=== PATIENT | male | born 1990 | race Caucasian/White ===

== ENCOUNTER 2017-02-25 05:48 | Day surgery (SDC) | payer MEDICAID, OTHER ==
[2017-02-20 15:05] VITALS: BMI 22.0
[2017-02-25] MEDS: SODIUM CHLORIDE 0.9% 1,000 ML IV SCH (06:34)
[2017-02-25] MEDS ORDERED: PROTAMINE SULFATE 10 MG/ML 5 ML VIAL IV ONE (07:46)
[2017-02-25] MEDS ORDERED: MIDAZOLAM 2 MG/2 ML VIAL ONE (07:46)
[2017-02-25] MEDS ORDERED: ISOPROTERENOL 250 MCG/1.25 ML SYR IV ONE (07:46)
[2017-02-25] MEDS ORDERED: HEPARIN SODIUM,PORCINE 10,000 UNIT/ML 1 ML VIAL ONE (07:46)
[2017-02-25] MEDS ORDERED: fentaNYL (PF) 50 MCG/ML 2 ML AMP ONE (07:46)
[2017-02-25] MEDS ORDERED: PROPOFOL 10 MG/ML 20 ML VIAL IV ONE (07:46)
[2017-02-25] MEDS ORDERED: HEPARIN SODIUM (1,000 UNIT/ML) 1,000 UNIT in SODIUM CHLORIDE 0.9% 1,000 ML IRRIGATION ONE (08:22)
[2017-02-25] MEDS ORDERED: LIDOCAINE 2% INJ 20 MG/ML SQ ONE (08:22)
[2017-02-25] MEDS ORDERED: ACETAMINOPHEN IV (For NPO) 1,000 MG in EMPTY BAG 1 BAG IVPB ONE (11:45)
[2017-02-25] MEDS ORDERED: LACTATED RINGERS 1,000 ML IV ONE (12:18)
[2017-02-25 13:00] VITALS: RESP 18
[2017-02-25] MEDS: LACTATED RINGERS 1,000 ML IV SCH (16:58)
[2017-02-25] MEDS: ASPIRIN 325 MG TAB PO SCH (16:58)
[2017-02-25] MEDS: HEPARIN SODIUM,PORCINE/D5W PMX 25,000 UNIT in DEXTROSE/WATER 1 500ML.BAG IV SCH (16:58)
[2017-02-25] MEDS ORDERED: HYDROcodone/APAP 5-325MG 1 EACH TAB PO PRN (17:05)
--- NOTE | 2017-02-25 17:10 | CE ---
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 The patient is brought to the EP lab. He was referred by Dr. Beebe for management of an abnormal ECG with an with evidence of antegrade excessive pathway conduction/. DESCRIPTION OF PROCEDURE: Patient brought to the EP lab in a fasting state. Written informed consent was obtained prior to the procedure. The right and left groins were prepped and draped as per protocol and venous sheaths were placed in the right and left femoral veins, 2 each. Via these diagnostic catheters were positioned the right heart (high right atrial catheter, HIS bundle catheter, RV catheter and coronary sinus catheter). 1. Sinus cycle length was 990 milliseconds. AH interval 109 milliseconds, QRS showed evidence of wound delta waves with upright morphology in leads 1, aVL, negative in 2, 3 aVF upright in all precordial leads. 2. AH interval was 75 milliseconds HV interval was foreshortened at 16 milliseconds. 3. Sinus node recovery times in the sedated state was at 600 and 500 milliseconds were 1308 and 1294 milliseconds. Corresponding corrected sinus recovery times were within normal limits. VA Wenckebach block was 70 milliseconds. During atrial pacing accessory pathway conduction was noted intermittently. 4. Isuprel was then started and AV Wenckebach block was at 280 millisecond from the coronary sinus in the high right atrium and from the high right atrium. There is excessive pathway block occurred at a shorter cycle length than this. VA Wenckebach block 240 milliseconds, VA block in the accessary pathway 230 milliseconds. 5. Ventricular extra stimulation was performed. Pacing from the high right atrium and the coronary sinus was performed. SVT was induced on Isuprel at 450/200 milliseconds. This was orthodromic reentry with the retrograde conduction in the posterior left accessory pathway. However this pathway had showed evidence of bidirectional conduction. 6. With the slightest ventricular pacing maneuvers the tachycardia would terminate very easily. Therefore the left and right transseptal catheterization was performed with intracardiac echo guidance. The right atrial pressure was 12 x 3 mmHg, left atrial pressure 20 x 0 mmHg Mapping ablation catheter was placed there and the mitral anulus was mapped. Mitral annular points were tagged. The mapping was performed both during orthodromic reentry. However it was somewhat more difficult to induce orthodromic reentry after this as well as the fact that it would terminate very easily and during mapping along the posterior mitral anulus. The antegrade path was also mapped. Finally the earliest site of antegrade activation was mapped and RF application was applied here and bullous lesions applied. With the first lesion itself being the excessive pathway conduction was eliminated, bolus lesions were applied thereafter. Following that, a detailed study was performed with high-dose Isuprel as well as during the washout without any evidence for accessary pathway conduction antegradely or retrogradely. AV node Wenckebach block on Isuprel following that was AV node Wenckebach block was 220 milliseconds, VA Wenckebach block 210 milliseconds, retrograde conduction was midline and decremental. There was no evidence for excessive pathway conduction. Thereafter no SVT was induced. All catheters were then removed. The heparin had been started during the procedure, heparin used during the procedure and this was reversed. The patient was started on aspirin 325 mg p.o. daily for 1 month. RESULT: Diagnostic EP study revealing orthodromic re-entry utilizing the retrograde left posterior accessary pathway status post successful ablation. The tachycardia was rendered noninducible and the excessive pathway was eliminated completely. The patient tolerated the procedure well without any acute complications. PROCEDURE PERFORMED: 1. Comprehensive diagnostic EP study. 2. CS pacing and recording. 3. Programmed stimulation following Isuprel. 4. 3D mapping. 5. SVT ablation. 6. Intracardiac echocardiography. 7. Transeptal catheterization. 8. 3D mapping and radiofrequency ablation for SVT. MMODL / IJN: [id number] /
[2017-02-25] MEDS ORDERED: ACETAMINOPHEN TAB 325 MG TAB PO PRN (18:00)
[2017-02-26 07:30] VITALS: BP 127/69; PULSE 56; TEMP 98.1
--- NOTE | 2017-02-26 08:17 | P.DS ---
Providers Attending physician: Waqar Andino Primary care physician: Enriqueta Alvarez [facility] Course: Patient is doing well. He underwent ablation of the left posterior accessory pathway for the management of orthodromic reentry. His groins of healed well no pain no discomfort no swelling. No chest pain no dizziness no lightheadedness on examination his vitals are stable. Heart sounds are normal breath sounds are clear extremities are warm Impression Orthodromic reentry status post ablation of the left posterior accessory pathway , successful Twelve-lead ECG today shows sinus rhythm with a narrow QRS and absence of any delta waves Occasional PACs noted on telemetry Plan Discharge home on aspirin 325 mg by mouth daily for one month. Thereafter the patient should stop aspirin Follow-up with private care physician Dr. Alvarez and with Dr. Montoya Patient Condition at Discharge: Stable Plan - Discharge Summary Discharge Rx Participant: Yes New Discharge Prescriptions: New RX: Aspirin EC [Ecotrin] 325 mg PO DAILY #30 tablet. No Action HYDROcodone/APAP 5-325MG [Yantis 5-325] 1 tab PO Q6HR PRN PRN Reason: Pain Ibuprofen [Motrin] 800 mg PO DAILY PRN PRN Reason: Pain Discharge Medication List HYDROcodone/APAP 5-325MG [Yantis 5-325] 1 tab PO Q6HR PRN 02/20/17 [History] Ibuprofen [Motrin] 800 mg PO DAILY PRN 02/20/17 [History] RX: Aspirin EC [Ecotrin] 325 mg PO DAILY #30 tablet. 02/25/17 [Rx] Follow up Appointment(s)/Referral(s): Torito Beebe MD [STAFF PHYSICIAN] - 1 Week Activity/Diet/Wound Care/Special Instructions: Post EP study - Ablation instructions 1. Keep access sites dry for 2 days. 2. No heavy lifting or straining for 2 days. 3. Avoid bending the hips repeatedly for 2 days. 4. You may go up and down stairs slowly Call if the following is noted 1. Bleeding, increasing swelling or pain at the access sites. 2. Increasing chest discomfort, especially upon taking a deep breath. 3. Increasing shortness of breath, at rest or with exertion. 4. Undue cough / phlegm 5. Difficulty or pain while swallowing. 6. Pain or change in color in the extremities. 7. Fever, chills, rigors. 8. Increasing headache or neurologic symptoms. 9. Dizziness, fainting, palpitations Follow-up with Dr. Montoya in 1-2 weeks 325 mg by mouth aspirin daily for one month then stop Discharge Disposition: HOME SELF-CARE
[2017-02-26] MEDS: ASPIRIN 325 MG TAB PO SCH (08:34)
[2017-02-26] MEDS: SODIUM CHLORIDE 0.9% 1,000 ML IV SCH (10:29)
[2017-02-26] MEDS: HEPARIN SODIUM,PORCINE/D5W PMX 25,000 UNIT in DEXTROSE/WATER 1 500ML.BAG IV SCH (10:29)
[2017-02-26] MEDS: LACTATED RINGERS 1,000 ML IV SCH (10:29)
== END 2017-02-26 10:12 | disposition home or self-care (01) ==
LOC: CATHEP 05:48 → 3OBS 11:37 → CATHEP 02-26 10:12
PROVIDERS: ATTEND Internal Medicine Clinical Cardiac Electrophysiology
DX: I47.1 Supraventricular tachycardia (principal); R00.1 Bradycardia, unspecified; I45.6 Pre-excitation syndrome; F17.210 Nicotine dependence, cigarettes, uncomplicated; Z88.8 Allergy status to other drugs, medicaments and biological substances; R56.9 Unspecified convulsions
CPT/HCPCS: 93462; 93623; 93662; 93613; 93653; C1769 ×3; C1894; C1730 ×2; C1759; C1893; C1732; J2001; J2250; J2720; J1644 ×2; J3010; J2704

== ENCOUNTER 2019-10-14 17:01 | Emergency (ER) | payer OTHER ==
[2019-10-14 17:08] VITALS: RESP 16; TEMP 98.4
--- NOTE | 2019-10-14 17:32 | ED ---
General Adult HPI - General Chief complaint: Seizure Stated complaint: Seizure Time Seen by Provider: 10/14/19 17:05 Source: patient, EMS, RN notes reviewed, old records reviewed Mode of arrival: EMS Limitations: no limitations - History of Present Illness Initial comments: This is a 29-year-old male who presents emergency department after having had wh at was described as a seizure. Patient states he has a history of seizures. Patient states he has a seizure about once every month. Patient states he is on a medication for because he tried some meds and he has side effects so he stopped. Patient states he typically doesn't come to the hospital but since he's in assisted and he had a seizure at assisted they brought him in. Patient states he doesn't remember anything about the seizure. The option of the came with him states someone witnessed him standing and then he had fallen and was shaking for about 4-5 minutes after which time he was confused. Patient now is alert and oriented 3 complains of nothing but a slight headache on the left side where he hit the ground. There is some contusion in that area and he states it's tender to palpation. Patient denies any recent fever chills per patient denies drug use. Patient been in assisted for 2 days. - Related Data Home Medications Medication Instructions Recorded Confirmed No Known Home Medications 10/14/19 10/14/19 Allergies Allergy/AdvReac Type Severity Reaction Status Date / Time phenobarbital Allergy Nausea & Verified 10/14/19 18:08 Vomiting & Diarrhea Review of Systems ROS Statement: Those systems with pertinent positive or pertinent negative responses have been documented in the HPI. ROS Other: All systems not noted in ROS Statement are negative. Past Medical History Past Medical History: Seizure Disorder Additional Past Medical History / Comment(s): See Dr Andino's H&P. last seizure 7 months ago, Denies taking any medications for seizures. History of Any Multi-Drug Resistant Organisms: None Reported Past Surgical History: Heart Catheterization Additional Past Surgical History / Comment(s): Supraventricular tachycardia ablation in 2009 Past Anesthesia/Blood Transfusion Reactions: No Reported Reaction Past Psychological History: No Psychological Hx Reported Smoking Status: Current some day smoker Past Alcohol Use History: Rare Past Drug Use History: Marijuana - Past Family History Mother Family Medical History: No Reported History Father Family Medical History: No Reported History, Unable to Obtain Additional Family Medical History / Comment(s): Patient states he does not know his father. He has 1 brother that has bipolar. 3 brothers that are healthy. He has one sister that is healthy. He does not have any children. General Exam - General Exam Comments Initial Comments: GENERAL: Patient is well-developed and well-nourished. Patient is nontoxic and well- hydrated and is in no acute distress. Contusion left side of forehead ENT: Neck is soft and supple. No significant lymphadenopathy is noted. Oropharynx is clear. Moist mucous membranes. Neck has full range of motion without eliciting any pain. EYES: The sclera were anicteric and conjunctiva were pink and moist. Extraocular movements were intact and pupils were equal round and reactive to light. Eyelids were unremarkable. PULMONARY: Unlabored respirations. Good breath sounds bilaterally. No audible rales rhonchi or wheezing was noted. CARDIOVASCULAR: There is a regular rate and rhythm without any murmurs gallops or rubs. ABDOMEN: Soft and nontender with normal bowel sounds. SKIN: Skin is clear with no lesions or rashes and otherwise unremarkable. NEUROLOGIC: Patient is alert and oriented x3. Cranial nerves II through XII are grossly intact. Motor and sensory are also intact. Normal speech, volume and content. Symmetrical smile. MUSCULOSKELETAL: Normal extremities with adequate strength and full range of motion. LYMPHATICS: No significant lymphadenopathy is noted PSYCHIATRIC: Normal psychiatric evaluation. Limitations: no limitations Course Vital Signs 10/14/19 10/14/19 17:03 19:14 Temperature 98.4 F Pulse Rate 70 56 L Respiratory 16 16 Rate Blood Pressure 120/66 118/72 O2 Sat by Pulse 97 97 Oximetry Medical Decision Making - Medical Decision Making EKG shows a normal sinus rhythm at 62 bpm LA interval 232 QRS is 94 Q-T intervals 380 QTC is 35 per patient's EKG shows no ST segment elevation or depression. CT shows no acute abnormality. Patient had no seizure activity while in the emergency department. I indicated that the patient needs to follow up he stated he was not really interested in following up as he doesn't like doctors. - Lab Data Result diagrams: 10/14/19 17:30 10/14/19 17:30 Lab Results 10/14/19 10/14/19 10/14/19 Range/Units 17:30 17:30 18:51 WBC 8.5 (3.8-10.6) k/uL RBC 5.20 (4.30-5.90) m/uL Hgb 15.9 (13.0-17.5) gm/dL Hct 47.6 (39.0-53.0) % MCV 91.5 (80.0-100.0) fL MCH 30.7 (25.0-35.0) pg MCHC 33.5 (31.0-37.0) g/dL RDW 12.6 (11.5-15.5) % Plt Count 254 (150-450) k/uL Neutrophils % 80 % Lymphocytes % 13 % Monocytes % 4 % Eosinophils % 1 % Basophils % 0 % Neutrophils # 6.8 (1.3-7.7) k/uL Lymphocytes # 1.1 (1.0-4.8) k/uL Monocytes # 0.4 (0-1.0) k/uL Eosinophils # 0.1 (0-0.7) k/uL Basophils # 0.0 (0-0.2) k/uL Sodium 137 (137-145) mmol/L Potassium 3.8 (3.5-5.1) mmol/L Chloride 106 (98-107) mmol/L Carbon Dioxide 22 (22-30) mmol/L Anion Gap 9 mmol/L BUN 13 (9-20) mg/dL Creatinine 0.72 (0.66-1.25) mg/dL Est GFR (CKD-EPI)AfAm >90 (>60 ml/min/1.73 sqM) Est GFR (CKD-EPI)NonAf >90 (>60 ml/min/1.73 sqM) Glucose 98 (74-99) mg/dL Calcium 9.7 (8.4-10.2) mg/dL Total Bilirubin 1.2 (0.2-1.3) mg/dL AST 23 (17-59) U/L ALT 18 (4-49) U/L Alkaline Phosphatase 73 (38-126) U/L Total Protein 7.6 (6.3-8.2) g/dL Albumin 4.3 (3.5-5.0) g/dL Urine Opiates Screen Detected H (NotDetected) Ur Oxycodone Screen Not Detected (NotDetected) Urine Methadone Screen Not Detected (NotDetected) Ur Propoxyphene Screen Not Detected (NotDetected) Ur Barbiturates Screen Not Detected (NotDetected) U Tricyclic Antidepress Not Detected (NotDetected) Ur Phencyclidine Scrn Not Detected (NotDetected) Ur Amphetamines Screen Not Detected (NotDetected) U Methamphetamines Scrn Not Detected (NotDetected) U Benzodiazepines Scrn Not Detected (NotDetected) Urine Cocaine Screen Not Detected (NotDetected) U Marijuana (THC) Screen Detected H (NotDetected) Disposition Clinical Impression: Generalized seizure Disposition: HOME SELF-CARE Instructions (If sedation given, give patient instructions): Recurrent Seizures in Adults (ED) Additional Instructions: While the patient is in assisted he should be house in an area that is observable and case the patient has another seizure. Patient should not drive or operate any heavy machinery. Patient should follow-up with a neurologist. Is patient prescribed a controlled substance at d/c from ED?: No Referrals: None,Stated [Primary Care Provider] - 1-2 days Time of Disposition: 19:33
[2019-10-14 17:41] LABS: Basophils % (A) 0 %; Eosinophils # (A) 0.1 k/uL (0-0.7); Eosinophils % (A) 1 %; HCT 47.6 % (39.0-53.0); HGB 15.9 gm/dL (13.0-17.5); Lymphocytes # (A) 1.1 k/uL (1.0-4.8); Lymphocytes % (A) 13 %; MCH 30.7 pg (25.0-35.0); MCHC 33.5 g/dL (31.0-37.0); MCV 91.5 fL (80.0-100.0); Mean Platelet Volume 7.1; Monocytes # (A) 0.4 k/uL (0-1.0); Monocytes % (A) 4 %; Neutrophils # (A) 6.8 k/uL (1.3-7.7); Neutrophils % (A) 80 %; Platelet Count 254 k/uL (150-450); RDW 12.6 % (11.5-15.5); WBC 8.5 k/uL (3.8-10.6)
--- NOTE | 2019-10-14 17:52 | CT ---
EXAMINATION TYPE: CT brain wo con DATE OF EXAM: 10/14/2019 COMPARISON: 02/06/2010 HISTORY: seizure CT DLP: 1084.4 mGycm Automated exposure control for dose reduction was used. Ventricles and sulci appear normal. There is no mass effect nor midline shift. There is no sign of in tracranial hemorrhage. The calvarium is intact. There is no evidence of cerebral edema. IMPRESSION: Negative unenhanced head CT scan.
[2019-10-14 18:04] LABS: ALT 18 U/L (4-49); AST 23 U/L (17-59); African American GFR (CKD) >90 (>60 ml/min/1.73 sqM); Albumin 4.3 g/dL (3.5-5.0); Alkaline Phosphatase 73 U/L (38-126); Anion Gap 9 mmol/L; Blood Urea Nitrogen 13 mg/dL (9-20); Calcium 9.7 mg/dL (8.4-10.2); Carbon Dioxide 22 mmol/L (22-30); Chloride 106 mmol/L (98-107); Glucose 98 mg/dL (74-99); Non-African American GFR(CKD) >90 (>60 ml/min/1.73 sqM); Potassium 3.8 mmol/L (3.5-5.1); Sodium 137 mmol/L (137-145); Total Bilirubin 1.2 mg/dL (0.2-1.3); Total Protein 7.6 g/dL (6.3-8.2)
[2019-10-14 19:15] VITALS: BP 118/72; PULSE 56
[2019-10-14 19:27] LABS: Cocaine Screen,Urine Not Detected (NotDetected); Phencyclidine Screen,Urine Not Detected (NotDetected); Urn Cannabinoid Scrn Detected (NotDetected)
[2019-10-14 19:28] LABS: Amphetamine Screen,Urine Not Detected (NotDetected); Barbiturate Screen,Urine Not Detected (NotDetected); Benzodiazepines Screen,Urine Not Detected (NotDetected); Methadone Screen, Urine Not Detected (NotDetected); Opiate Screen,Urine Detected (NotDetected); Oxycodone Screen, Urine Not Detected (NotDetected); Tricyclic Antidepressant,Urine Not Detected (NotDetected)
== END 2019-10-14 20:11 | disposition home or self-care (01) ==
LOC: EC 17:01
DX: G40.309 Generalized idiopathic epilepsy and epileptic syndromes, not intractable, without status epilepticus (principal); F17.200 Nicotine dependence, unspecified, uncomplicated; Z88.8 Allergy status to other drugs, medicaments and biological substances
CPT/HCPCS: 36415; 70450; 80053; 80306; 85025; 93005; 99285

== ENCOUNTER 2019-10-15 23:10 | Emergency (ER) | payer OTHER ==
[2019-10-15 23:18] VITALS: RESP 16; TEMP 97.9
[2019-10-16 00:46] LABS: Basophils % (A) 0 %; Eosinophils # (A) 0.1 k/uL (0-0.7); Eosinophils % (A) 1 %; HCT 45.6 % (39.0-53.0); HGB 15.8 gm/dL (13.0-17.5); Lymphocytes # (A) 1.5 k/uL (1.0-4.8); Lymphocytes % (A) 19 %; MCH 31.4 pg (25.0-35.0); MCHC 34.6 g/dL (31.0-37.0); MCV 90.8 fL (80.0-100.0); Mean Platelet Volume 7.8; Monocytes # (A) 0.5 k/uL (0-1.0); Monocytes % (A) 6 %; Neutrophils # (A) 6.1 k/uL (1.3-7.7); Neutrophils % (A) 73 %; Platelet Count 281 k/uL (150-450); RBC 5.03 m/uL (4.30-5.90); RDW 12.5 % (11.5-15.5); WBC 8.3 k/uL (3.8-10.6)
[2019-10-16 00:59] LABS: ALT 19 U/L (4-49); AST 24 U/L (17-59); African American GFR (CKD) >90 (>60 ml/min/1.73 sqM); Albumin 4.4 g/dL (3.5-5.0); Alkaline Phosphatase 75 U/L (38-126); Anion Gap 12 mmol/L; Blood Urea Nitrogen 13 mg/dL (9-20); Calcium 9.5 mg/dL (8.4-10.2); Carbon Dioxide 19 mmol/L (22-30); Chloride 106 mmol/L (98-107); Glucose 120 mg/dL (74-99); Non-African American GFR(CKD) >90 (>60 ml/min/1.73 sqM); Potassium 3.5 mmol/L (3.5-5.1); Sodium 137 mmol/L (137-145); Total Bilirubin 1.3 mg/dL (0.2-1.3); Total Protein 7.5 g/dL (6.3-8.2)
[2019-10-16] MEDS ORDERED: carBAMazepine 200 MG TAB PO STA (01:14)
--- NOTE | 2019-10-16 01:16 | ED ---
Seizure HPI - General Chief Complaint: Seizure Stated Complaint: seizure Time Seen by Provider: 10/15/19 23:43 Source: patient, EMS Mode of arrival: EMS Limitations: no limitations - History of Present Illness Initial Comments: This patient is 29-year-old man who presents to be evaluated for seizures. The patient has had a number seizures within the past 1-2 hours while he was in group home. The patient does acknowledge having history of seizure disorder. He states that he is not currently taking any medication but has pretty good seizure control at home using medical marijuana. The patient states that he has not been ruled out is that in group home. He states that he has tried both Keppra and phenobarbital, but had adverse reactions to those medications. The patient denies any injury. He feels like he is at his baseline. MD Complaint: seizure -: hour(s) Description of Episode: loss of consciousness, tonic-clonic movement -: second(s) Witnessed: yes - by bystander Trauma: No Seizure History: known seizure disorder Place: other Possible Precipitating Event: lack of sleep Associated Symptoms: denies other symptoms Treatments Prior to Arrival: none - Related Data Previous Rx's Medication Instructions Recorded carBAMazepine [TEGretol] 200 mg PO Q12H #30 tablet 10/16/19 Allergies Allergy/AdvReac Type Severity Reaction Status Date / Time phenobarbital Allergy Nausea & Verified 10/14/19 18:08 Vomiting & Diarrhea Review of Systems ROS Statement: Those systems with pertinent positive or pertinent negative responses have been documented in the HPI. ROS Other: All systems not noted in ROS Statement are negative. Constitutional: Denies: fever, chills Eyes: Denies: vision change ENT: Denies: ear pain Respiratory: Denies: cough, dyspnea Cardiovascular: Denies: chest pain, palpitations, syncope Gastrointestinal: Denies: abdominal pain, vomiting, diarrhea Genitourinary: Denies: dysuria Musculoskeletal: Denies: back pain Skin: Denies: rash Neurological: Denies: headache, weakness, numbness, paresthesias Past Medical History Past Medical History: Seizure Disorder Additional Past Medical History / Comment(s): See Dr Andino's H&P. last seizure 7 months ago, Denies taking any medications for seizures. History of Any Multi-Drug Resistant Organisms: None Reported Past Surgical History: Heart Catheterization Additional Past Surgical History / Comment(s): Supraventricular tachycardia ablation in 2010 Past Anesthesia/Blood Transfusion Reactions: No Reported Reaction Past Psychological History: No Psychological Hx Reported Smoking Status: Current some day smoker Past Alcohol Use History: Rare Past Drug Use History: Marijuana - Past Family History Mother Family Medical History: No Reported History Father Family Medical History: No Reported History, Unable to Obtain Additional Family Medical History / Comment(s): Patient states he does not know his father. He has 1 brother that has bipolar. 3 brothers that are healthy. He has one sister that is healthy. He does not have any children. General Exam Limitations: no limitations General appearance: alert, in no apparent distress Head exam: Present: atraumatic, normocephalic, normal inspection Eye exam: Present: normal appearance, PERRL, EOMI. Absent: scleral icterus, conjunctival injection, nystagmus ENT exam: Present: normal oropharynx Neck exam: Present: normal inspection, full ROM. Absent: tenderness, meningismus Respiratory exam: Present: normal lung sounds bilaterally. Absent: respiratory distress, wheezes, rales, rhonchi, stridor, chest wall tenderness Cardiovascular Exam: Present: regular rate, normal rhythm, normal heart sounds. Absent: systolic murmur, diastolic murmur, rubs, gallop GI/Abdominal exam: Present: soft. Absent: distended, tenderness, guarding, rebound, rigid, mass Extremities exam: Present: normal inspection, normal capillary refill. Absent: pedal edema, calf tenderness Back exam: Present: normal inspection. Absent: CVA tenderness (R), CVA tenderness (L), vertebral tenderness Neurological exam: Present: alert, oriented X3, CN II-XII intact. Absent: motor sensory deficit Skin exam: Present: warm, dry, intact, normal color. Absent: rash Course Vital Signs 10/15/19 10/16/19 23:11 01:14 Temperature 97.9 F Pulse Rate 75 57 L Respiratory 16 16 Rate Blood Pressure 126/68 120/75 O2 Sat by Pulse 93 L 97 Oximetry Medical Decision Making - Lab Data Result diagrams: 10/16/19 00:39 10/16/19 00:39 Lab Results 10/16/19 10/16/19 Range/Units 00:39 00:39 WBC 8.3 (3.8-10.6) k/uL RBC 5.03 (4.30-5.90) m/uL Hgb 15.8 (13.0-17.5) gm/dL Hct 45.6 (39.0-53.0) % MCV 90.8 (80.0-100.0) fL MCH 31.4 (25.0-35.0) pg MCHC 34.6 (31.0-37.0) g/dL RDW 12.5 (11.5-15.5) % Plt Count 281 (150-450) k/uL Neutrophils % 73 % Lymphocytes % 19 % Monocytes % 6 % Eosinophils % 1 % Basophils % 0 % Neutrophils # 6.1 (1.3-7.7) k/uL Lymphocytes # 1.5 (1.0-4.8) k/uL Monocytes # 0.5 (0-1.0) k/uL Eosinophils # 0.1 (0-0.7) k/uL Basophils # 0.0 (0-0.2) k/uL Sodium 137 (137-145) mmol/L Potassium 3.5 (3.5-5.1) mmol/L Chloride 106 (98-107) mmol/L Carbon Dioxide 19 L (22-30) mmol/L Anion Gap 12 mmol/L BUN 13 (9-20) mg/dL Creatinine 0.75 (0.66-1.25) mg/dL Est GFR (CKD-EPI)AfAm >90 (>60 ml/min/1.73 sqM) Est GFR (CKD-EPI)NonAf >90 (>60 ml/min/1.73 sqM) Glucose 120 H (74-99) mg/dL Calcium 9.5 (8.4-10.2) mg/dL Total Bilirubin 1.3 (0.2-1.3) mg/dL AST 24 (17-59) U/L ALT 19 (4-49) U/L Alkaline Phosphatase 75 (38-126) U/L Total Protein 7.5 (6.3-8.2) g/dL Albumin 4.4 (3.5-5.0) g/dL - EKG Data -: EKG Interpreted by Ca EKG shows normal: sinus rhythm, axis (Rightward), intervals (Normal), QRS complexes (Normal), ST-T waves (Normal) Rate: bradycardia (Rate 58 bpm) Disposition Clinical Impression: Generalized seizure Disposition: HOME SELF-CARE Condition: Good Instructions (If sedation given, give patient instructions): Recurrent Seizures in Adults (ED) Prescriptions: carBAMazepine [TEGretol] 200 mg PO Q12H #30 tablet Is patient prescribed a controlled substance at d/c from ED?: No Referrals: None,Stated [Primary Care Provider] - 1-2 days Johnny Rangel MD [REFERRING] - 1-2 days
[2019-10-16 01:32] VITALS: BP 120/75; PULSE 57
== END 2019-10-16 02:20 | disposition home or self-care (01) ==
LOC: EC 23:10
DX: G40.409 Other generalized epilepsy and epileptic syndromes, not intractable, without status epilepticus (principal); F17.200 Nicotine dependence, unspecified, uncomplicated; Z88.8 Allergy status to other drugs, medicaments and biological substances; Z95.5 Presence of coronary angioplasty implant and graft
CPT/HCPCS: 36415; 80053; 85025; 93005; 99285

== ENCOUNTER 2019-10-16 02:54 | Inpatient (IN) | payer OTHER ==
[2019-10-16] MEDS ORDERED: carBAMazepine 200 MG TAB PO STA (03:21)
--- NOTE | 2019-10-16 03:22 | ED ---
Seizure HPI - General Chief Complaint: Seizure Stated Complaint: Seizure Time Seen by Provider: 10/16/19 03:09 Source: patient, EMS Mode of arrival: EMS - History of Present Illness Initial Comments: This patient is a 29-year-old man brought by [facility] department personnel to be evaluated after he had 2 seizures being transported to the [facility]. The patient had just left here after being evaluated for having had a number of seizures in the [facility]. The patient here is alert and denying any injury. MD Complaint: seizure -: minutes(s) Description of Episode: loss of consciousness, tonic-clonic movement -: second(s) Witnessed: yes - by bystander Trauma: No Seizure History: known seizure disorder Place: other Possible Precipitating Event: none Associated Symptoms: denies other symptoms - Related Data Previous Rx's Medication Instructions Recorded carBAMazepine [TEGretol] 200 mg PO Q12H #30 tablet 10/16/19 Allergies Allergy/AdvReac Type Severity Reaction Status Date / Time phenobarbital Allergy Nausea & Verified 10/16/19 06:09 Vomiting & Diarrhea Review of Systems ROS Statement: Those systems with pertinent positive or pertinent negative responses have been documented in the HPI. ROS Other: All systems not noted in ROS Statement are negative. Constitutional: Denies: fever, chills Eyes: Denies: vision change Respiratory: Denies: cough, dyspnea Cardiovascular: Denies: chest pain, palpitations, syncope Gastrointestinal: Denies: abdominal pain, vomiting, diarrhea Musculoskeletal: Denies: back pain Skin: Denies: rash Neurological: Denies: headache, weakness, numbness, paresthesias Past Medical History Past Medical History: Seizure Disorder Additional Past Medical History / Comment(s): See Dr Andino's H&P. last seizure 7 months ago, Denies taking any medications for seizures. History of Any Multi-Drug Resistant Organisms: None Reported Past Surgical History: Heart Catheterization Additional Past Surgical History / Comment(s): Supraventricular tachycardia ablation in 2009 Past Anesthesia/Blood Transfusion Reactions: No Reported Reaction Past Psychological History: No Psychological Hx Reported Smoking Status: Current some day smoker Past Alcohol Use History: Rare Past Drug Use History: Marijuana - Past Family History Mother Family Medical History: No Reported History Father Family Medical History: No Reported History, Unable to Obtain Additional Family Medical History / Comment(s): Patient states he does not know his father. He has 1 brother that has bipolar. 3 brothers that are healthy. He has one sister that is healthy. He does not have any children. General Exam General appearance: alert, in no apparent distress Head exam: Present: normocephalic, other (Right temporal contusion.) Eye exam: Present: normal appearance, PERRL, EOMI. Absent: scleral icterus, conjunctival injection, nystagmus ENT exam: Present: normal oropharynx Neck exam: Present: normal inspection, full ROM. Absent: tenderness Respiratory exam: Present: normal lung sounds bilaterally. Absent: respiratory distress, wheezes, rales, rhonchi, stridor Cardiovascular Exam: Present: regular rate, normal rhythm, normal heart sounds. Absent: systolic murmur, diastolic murmur, rubs, gallop GI/Abdominal exam: Present: soft. Absent: distended, tenderness, guarding, rebound, rigid, mass Extremities exam: Present: normal inspection, normal capillary refill. Absent: pedal edema, calf tenderness Back exam: Present: normal inspection. Absent: vertebral tenderness Neurological exam: Present: alert, oriented X3, CN II-XII intact. Absent: motor sensory deficit Skin exam: Present: warm, dry, intact, normal color. Absent: rash Course Vital Signs 10/16/19 10/16/19 02:56 06:03 Temperature 99.4 F Pulse Rate 83 61 Respiratory 36 H 16 Rate Blood Pressure 116/74 133/79 O2 Sat by Pulse 98 98 Oximetry Medical Decision Making - Medical Decision Making This patient is a 29-year-old man with history of seizure disorder currently not taking any seizure medication other than having had dose of carbamazepine that he was given here earlier in the day. The patient did have recurrent seizure and will be admitted to have consultation. I discussed case with neurology and he will have EEG at first availability. The patient is at baseline here in the department. Disposition Clinical Impression: Generalized seizure Disposition: ADMITTED IP TO THIS HOSP Condition: Good Is patient prescribed a controlled substance at d/c from ED?: No
[2019-10-16] MEDS ORDERED: MAG HYDROX/AL HYDROX/SIMETH 30 ML CUP PO PRN (05:41)
[2019-10-16] MEDS ORDERED: NALOXONE 0.4 MG/ML 1 ML VIAL IV PRN (05:41)
[2019-10-16] MEDS ORDERED: ONDANSETRON 4 MG/2 ML VIAL IVP PRN (05:41)
[2019-10-16] MEDS: ACETAMINOPHEN TAB 325 MG TAB PO PRN ×3 (06:01→20:24)
[2019-10-16] MEDS: SODIUM CHLORIDE 0.9% 1,000 ML IV SCH ×2 (06:08→20:25)
[2019-10-16] MEDS: FAMOTIDINE 20 MG TAB PO SCH ×2 (10:58→20:24)
--- NOTE | 2019-10-16 12:10 | P.HPIM ---
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 He was brought by [facility] staff for 2 seizures. Patient himself does not remember other than his been the ambulance and some officers and EMS staff told him that he had 2 seizures, he denies urinary incontinence but he said that a dedicated partially, no tongue biting. Also patient states that this morning he had some blood in his, also he complains from generalized body ache and tenderness. He is to follow up with Dr. Rangel who gave him seizure medication phenobarbital many years ago but he thinks that caused him to have blood in his distal so stop taking it vitals are stable. No labs were done, EEG and a neuro consult was ordered An ED patient got 1 dose of Tegretol, Ativan but it as needed and started on normal sinus 75 mL/h Also patient reported streaks of blood in stool, FOBT was ordered Review of Systems CONSTITUTIONAL: No fever, no malaise, no fatigue. HEENT: No recent visual problems or hearing problems. Denied any sore throat. CARDIOVASCULAR: No orthopnea, PND, no palpitations, no syncope. PULMONARY: No shortness of breath, no cough, no hemoptysis. GASTROINTESTINAL: No diarrhea, no nausea, no vomiting, no abdominal pain. Normoactive bowel sounds. NEUROLOGICAL: No headaches, no weakness, no numbness. HEMATOLOGICAL: Denies any bleeding or petechiae. GENITOURINARY: Denies any burning micturition, frequency, or urgency. MUSCULOSKELETAL/RHEUMATOLOGICAL: Denies any joint pain, swelling, or any muscle pain. ENDOCRINE: Denies any polyuria or polydipsia. Past Medical History Past Medical History: Seizure Disorder Additional Past Medical History / Comment(s): See Dr Andino's H&P. last seizure 7 months ago, Denies taking any medications for seizures. History of Any Multi-Drug Resistant Organisms: None Reported Past Surgical History: Heart Catheterization Additional Past Surgical History / Comment(s): Supraventricular tachycardia ablation in 2009 Past Anesthesia/Blood Transfusion Reactions: No Reported Reaction Past Psychological History: No Psychological Hx Reported Smoking Status: Current some day smoker Past Alcohol Use History: Rare Past Drug Use History: Marijuana - Past Family History Mother Family Medical History: No Reported History Father Family Medical History: No Reported History, Unable to Obtain Additional Family Medical History / Comment(s): Patient states he does not know his father. He has 1 brother that has bipolar. 3 brothers that are healthy. He has one sister that is healthy. He does not have any children. Medications and Allergies Allergies Allergy/AdvReac Type Severity Reaction Status Date / Time phenobarbital Allergy Nausea & Verified 10/16/19 06:09 Vomiting & Diarrhea Physical Exam Vitals: Vital Signs Temp Pulse Resp BP BP Pulse Ox 10/16/19 06:18 98.2 F 16 123/74 55 L 10/16/19 06:03 61 16 133/79 98 10/16/19 02:56 99.4 F 83 36 H 116/74 98 Intake and Output 10/15/19 10/16/19 10/16/19 22:59 06:59 14:59 Other: # Bowel Movements 1 Weight 61.235 kg GENERAL: The patient is alert and oriented x3, not in any acute distress. Well developed, well nourished. HEENT: Pupils are round and equally reacting to light. EOMI. No scleral icterus. No conjunctival pallor. Normocephalic, atraumatic. No pharyngeal erythema. No thyromegaly. CARDIOVASCULAR: S1 and S2 present. No murmurs, rubs, or gallops. PULMONARY: Chest is clear to auscultation, no wheezing or crackles. ABDOMEN: Soft, nontender, nondistended, normoactive bowel sounds. No palpable organomegaly. MUSCULOSKELETAL: No joint swelling or deformity. EXTREMITIES: No cyanosis, clubbing, or pedal edema. NEUROLOGICAL: Gross neurological examination did not reveal any focal deficits. SKIN: No rashes. No petechiae Thrombosis Risk Factor Assmnt - Choose All That Apply Any of the Below Risk Factors Present?: No Other Risk Factors: No Other congenital or acquired thrombophilia - If yes, enter type in comment: No Thrombosis Risk Factor Assessment Level: Very Low Risk Assessment and Plan Assessment: Seizure in patient with history of seizure not on any medication Reported possible blood in stool History of Nwuqm-Ppsnoejgx-Jxrcv syndrome status post ablation in 2017 Plan: This is a pleasant 29 years old male who presents from [facility] for possible seizure-like activity. Follow-up EEG and neurology consult. Also will check echo to blood in stool and order blood test like CBC, BMP, LFTs, INR/PTT, creatinine kinase Labs and medication were reviewed.. Continue same treatment. Continue with symptomatic treatment. Resume home medication. Monitor lytes and vitals. DVT and GI prophylaxis. Further recommendations of the clinical course of the patient DVT prophylaxis: No heparin for possible blood in stool GI Prophylaxis: Pepcid
[2019-10-16 13:07] LABS: Basophils % (A) 0 %; Eosinophils # (A) 0.1 k/uL (0-0.7); Eosinophils % (A) 1 %; HCT 45.4 % (39.0-53.0); HGB 15.1 gm/dL (13.0-17.5); Lymphocytes # (A) 1.3 k/uL (1.0-4.8); Lymphocytes % (A) 22 %; MCH 30.4 pg (25.0-35.0); MCHC 33.2 g/dL (31.0-37.0); MCV 91.4 fL (80.0-100.0); Monocytes # (A) 0.4 k/uL (0-1.0); Monocytes % (A) 7 %; Neutrophils # (A) 4.1 k/uL (1.3-7.7); Neutrophils % (A) 68 %; Platelet Count 261 k/uL (150-450); RBC 4.97 m/uL (4.30-5.90); RDW 12.6 % (11.5-15.5); WBC 6.1 k/uL (3.8-10.6)
[2019-10-16 13:16] LABS: ALT 20 U/L (4-49); AST 24 U/L (17-59); African American GFR (CKD) >90 (>60 ml/min/1.73 sqM); Albumin 4.1 g/dL (3.5-5.0); Alkaline Phosphatase 62 U/L (38-126); Anion Gap 7 mmol/L; Bilirubin,Unconjugated 1.8 mg/dL (0.0-1.1); Blood Urea Nitrogen 10 mg/dL (9-20); Calcium 9.2 mg/dL (8.4-10.2); Carbon Dioxide 23 mmol/L (22-30); Chloride 107 mmol/L (98-107); Creatine Kinase 93 U/L (55-170); Glucose 119 mg/dL (74-99); Magnesium 1.8 mg/dL (1.6-2.3); Non-African American GFR(CKD) >90 (>60 ml/min/1.73 sqM); Potassium 3.7 mmol/L (3.5-5.1); Sodium 137 mmol/L (137-145); Total Bilirubin 1.8 mg/dL (0.2-1.3); Total Protein 6.9 g/dL (6.3-8.2)
[2019-10-16 13:34] LABS: INR 1.1 (<1.2); Partial Thromboplastin Time 23.4 sec (22.0-30.0); Prothrombin Time 10.8 sec (9.0-12.0)
[2019-10-16 14:53] VITALS: BMI 20.5
--- NOTE | 2019-10-16 15:30 | EEG ---
ELECTROENCEPHALOGRAM REPORT DATE OF SERVICE: 10/16/2019 PREAMBLE: This is a 29-year-old male with seizure disorder, came with breakthrough seizures. This study is performed to evaluate for any epileptiform activity. EEG FINDINGS: This is a 21 channel routine EEG recording in a patient utilizing 10/20 international system with referential and bipolar montages. The background consists of well developed, well regulated, moderate voltage activity in 9 Hz alpha. Background is posterior dominant and is reactive to eye opening and closing. Photic driving response was not seen. Different stages of sleep were not seen. There is some dysrhythmic theta and some delta activity seen in the right temporal region. Some sharply controlled waves were seen, which did not appear clearly epileptiform. No definitive epileptiform activity was seen. IMPRESSION: This is an abnormal EEG due to focal slowing in the right temporal region. This is suggestive of focal cortical neuronal dysfunction. No definitive epileptiform activity was seen. Clinical correlation is recommended. Consider prolonged EEG, if indicated. MMCHATAL / IJN: [id number] /
[2019-10-16] MEDS: LORazepam 2 MG/ML INJ IV PRN (17:55)
--- NOTE | 2019-10-16 18:34 | P.CNNES ---
History of Present Illness Consult date: 10/16/19 Requesting physician: Armand Renteria Reason for Consult: Seizures History of Present Illness: Patient is a 29-year-old male with past medical history of seizure disorder for the last 8 years, came to the hospital from retirement because of breakthrough seizure. Patient states that he used to see a neurologist. He is ALLERGIC to phenobarbital. He was tried on Keppra, but produced weird feeling. He stopped taking Keppra after a short while. He has not been on any antiepileptic medication for over 6 years. Patient states that since then he started using marijuana, he would take marijuana all day, every day. He has been using marijuana since he was 12 years old. Patient usually gets grand mal seizures. There is no tongue bite or urinary incontinence. Patient states that his seizure frequency is about once a month. He usually gets 2 or 3 seizures [id number]. Patient went to retirement about a week ago. In the retirement he had a seizure. He was brought to the hospital where he was evaluated and discharged. However while he was in the police van, when he had another seizure, therefore EMS was called. Patient had a seizure while in the ambulance as well. He did lose partial bowel with one of the seizure. Patient was given Ativan in the ER. Patient also has history of Cjuvv-Zdybpklyg-Qefyi syndrome, status post ablation by Dr. Andino on 02/14 2017. Patient has smoked 1 pack per day since 14 years of age. Used to drink heavily, but stopped drinking in June 2019. He does not take any Xanax, or other benzo, or opioids. CT head negative. Patient's urine drug screen positive for opiates and marij uana. Chem-20 is normal. TSH normal. CBC normal. Review of Systems Complains of body aches from seizure. Otherwise completely unremarkable. Past Medical History Past Medical History: Seizure Disorder Additional Past Medical History / Comment(s): See Dr Andino's H&P. last seizure 7 months ago, Denies taking any medications for seizures. History of Any Multi-Drug Resistant Organisms: None Reported Past Surgical History: Heart Catheterization Additional Past Surgical History / Comment(s): Supraventricular tachycardia ablation in 2009 Past Anesthesia/Blood Transfusion Reactions: No Reported Reaction Past Psychological History: No Psychological Hx Reported Smoking Status: Current some day smoker Past Alcohol Use History: Rare Past Drug Use History: Marijuana - Past Family History Mother Family Medical History: No Reported History Father Family Medical History: No Reported History, Unable to Obtain Additional Family Medical History / Comment(s): Patient states he does not know his father. He has 1 brother that has bipolar. 3 brothers that are healthy. He has one sister that is healthy. He does not have any children. Medications and Allergies Allergies Allergy/AdvReac Type Severity Reaction Status Date / Time phenobarbital Allergy Nausea & Verified 10/16/19 06:09 Vomiting & Diarrhea Physical Examination - Vital Signs Vital Signs: Vital Signs Temp Pulse Resp BP BP Pulse Ox 10/16/19 06:18 98.2 F 16 123/74 55 L 10/16/19 06:03 61 16 133/79 98 10/16/19 02:56 99.4 F 83 36 H 116/74 98 Intake and Output 10/15/19 10/16/19 10/16/19 22:59 06:59 14:59 Other: # Bowel Movements 1 Weight 61.235 kg Patient was examined in front of the sheriff sergeant. On examination patient is a young male, in no acute distress. Patient is alert and awake fully oriented. Speech and language functions are normal. Attention and concentration fund of knowledge adequate. Cranial exam show pupils are round and reactive to light, visual perez are full, extraocular muscles are intact. Face is symmetric, tongue protrudes the midline. Palatal elevation and sensation normal. Hearing and shoulder shrug normal. On muscle strength testing, there is no pronator drift and the strength is normal in arms and legs distally and proximally. Reflexes are 1+ and plantars downgoing. Sensory touch is equal. No ataxia for [id number] testing, muscle tone and bulk of muscles normal. Gait not checked as patient is leg cuffed. Results - Laboratory Findings CBC and BMP: 10/16/19 12:33 10/16/19 12:33 Assessment and Plan Assessment: * Seizure disorder, came with breakthrough seizure. Patient not on any antiepileptic medication. He self medicates with marijuana for seizures. Patient's seizure frequency is usually once a month. * History of Quatf-Qvyoeqgkt-Vmulp syndrome. Status post ablation in 2016. * Tobacco user * Marijuana use. * History of alcoholism. Sober since June 2019. Plan: * Patient had an EEG performed, which was abnormal due to focal slowing in the right temporal region. This is suggestive of focal cortical neuronal dysfunction. No definitive epileptiform activity was seen. Clinical correlation is recommended. Consider prolonged EEG, if indicated. * Patient just had a seizure in the hospital. At present he is postictal. We will start patient on Trileptal 300 mg twice a day. I would suggest patient to stop medication if he gets any rash. * He may need sodium level checked in 3 months. * Observe overnight. If stable, then neurologically clear. * Follow up with neurologist as outpatient.
[2019-10-16] MEDS: OXcarbazepine 300 MG TAB PO SCH (20:24)
[2019-10-17 07:57] LABS: HCT 43.8 % (39.0-53.0); HGB 14.8 gm/dL (13.0-17.5); MCH 31.6 pg (25.0-35.0); MCHC 33.7 g/dL (31.0-37.0); MCV 93.6 fL (80.0-100.0); Mean Platelet Volume 7.2; Platelet Count 268 k/uL (150-450); RBC 4.68 m/uL (4.30-5.90); RDW 12.8 % (11.5-15.5); WBC 6.9 k/uL (3.8-10.6)
[2019-10-17] MEDS: OXcarbazepine 300 MG TAB PO SCH ×2 (08:45→19:43)
[2019-10-17] MEDS: FAMOTIDINE 20 MG TAB PO SCH ×2 (08:45→19:43)
[2019-10-17] MEDS ORDERED: IOPAMIDOL CONTRAST (ORAL USE) VIAL PO PRN (11:25)
--- NOTE | 2019-10-17 11:27 | P.PN ---
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 He was brought by the [employer] [employer] [facility] staff for 2 seizures. Patient himself does not remember other than his been the ambulance and some officers and EMS staff told him that he had 2 seizures, he denies urinary incontinence but he said that a dedicated partially, no tongue biting. Also patient states that this morning he had some blood in his, also he complains from generalized body ache and tenderness. He is to follow up with Dr. Rangel who gave him seizure medication phenobarbital many years ago but he thinks that caused him to have blood in his distal so stop taking it vitals are stable. No labs were done, EEG and a neuro consult was ordered An ED patient got 1 dose of Tegretol, Ativan but it as needed and started on normal sinus 75 mL/h Also patient reported streaks of blood in stool, FOBT was ordered 10/17/2019 Patient had seizure yesterday, neurologist evaluated the patient, EEG showing focal slowing of right temporal region with no epileptic activity, neurologist started him on Trileptal and cleared him for discharge today. No more seizure which he did not have. As per neurologist recommendation patient was instructed to stop his Trileptal if he develops rash and also to check sodium in 2-3 months and to follow up with a neurologist as an outpatient, patient verbalized understanding and acceptance of these recommendations. However patient states that he had blood in his stool when he came into the hospital and today is complaining of from. Umbilical pain and tenderness, history is that he has low appetite and he did not have bowel movement since he came to the hospital. FOBT is ordered and is pending, will do a CAT scan of the abdomen and pelvis with IV contrast, risk of contrast are explained to the patient including but not limited to ALLERGIC reaction, , organ dysfunction, renal failure that might end of hemodialysis, he agrees to the side effects and to do the CAT scan. Nuchal psych evaluation Patient also states that he feels depressed and he may think about his life when he lives the hospital, suspicion for intention to hurt herself Review of Systems CONSTITUTIONAL: No fever, no malaise, no fatigue. HEENT: No recent visual problems or hearing problems. Denied any sore throat. CARDIOVASCULAR: No orthopnea, PND, no palpitations, no syncope. PULMONARY: No shortness of breath, no cough, no hemoptysis. GASTROINTESTINAL: No diarrhea, no nausea, no vomiting,Normoactive bowel sounds. NEUROLOGICAL: No headaches, no weakness, no numbness. HEMATOLOGICAL: Denies any bleeding or petechiae. GENITOURINARY: Denies any burning micturition, frequency, or urgency. MUSCULOSKELETAL/RHEUMATOLOGICAL: Denies any joint pain, swelling, or any muscle pain. ENDOCRINE: Denies any polyuria or polydipsia. Active Medications Generic Name Dose Route Start Last Admin Trade Name Freq PRN Reason Stop Dose Admin Acetaminophen 650 mg 10/16/19 05:41 10/16/19 20:24 Tylenol Tab PO 650 mg Q6HR PRN Administration Mild Pain or Fever > 100.5 Al Hydroxide/Mg Hydroxide 15 ml 10/16/19 05:41 Maalox PO Q6HR PRN Indigestion Famotidine 20 mg 10/16/19 09:00 10/17/19 08:45 Pepcid PO 20 mg BID ILEANA Administration Sodium Chloride 1,000 mls @ 75 mls/hr 10/16/19 05:45 10/16/19 20:25 Saline 0.9% IV 75 mls/hr .[id number] ILEANA Administration Lorazepam 2 mg 10/16/19 05:44 10/16/19 17:55 Ativan IV 2 mg Q5M PRN Administration Seizures Naloxone HCl 0.2 mg 10/16/19 05:41 Narcan IV Q2M PRN Opioid Reversal Ondansetron HCl 4 mg 10/16/19 05:41 Zofran IVP Q8HR PRN Nausea And Vomiting Oxcarbazepine 300 mg 10/16/19 21:00 10/17/19 08:45 Trileptal PO 300 mg BID ILEANA Administration Objective - Vital Signs Vital signs: Vital Signs Temp 98.0 F 10/17/19 08:00 Pulse 58 L 10/17/19 08:00 Resp 16 10/17/19 08:00 BP 120/58 10/17/19 08:00 Pulse Ox 99 10/17/19 03:53 Intake & Output 10/16/19 10/17/19 10/17/19 18:59 06:59 18:59 Intake Total 220 Balance 220 Weight 61.235 kg 70 kg Intake: Oral 220 Other: Voiding Method Toilet Toilet # Voids 0 # Bowel Movements 1 - Exam GENERAL: The patient is alert and oriented x3, not in any acute distress. Well developed, well nourished. HEENT: Pupils are round and equally reacting to light. EOMI. No scleral icterus. No conjunctival pallor. Normocephalic, atraumatic. No pharyngeal erythema. No thyromegaly. CARDIOVASCULAR: S1 and S2 present. No murmurs, rubs, or gallops. PULMONARY: Chest is clear to auscultation, no wheezing or crackles. -ABDOMEN: Soft, periumbilical tenderness, no rebound tenderness nondistended, normoactive bowel sounds. No palpable organomegaly. MUSCULOSKELETAL: No joint swelling or deformity. EXTREMITIES: No cyanosis, clubbing, or pedal edema. NEUROLOGICAL: Gross neurological examination did not reveal any focal deficits. SKIN: No rashes. no petechiae. - Labs CBC & Chem 7: 10/17/19 07:05 10/16/19 12:33 Labs: Abnormal Lab Results - Last 24 Hours (Table) 10/16/19 Range/Units 12:33 Glucose 119 H (74-99) mg/dL Total Bilirubin 1.8 H (0.2-1.3) mg/dL Unconjugated Bilirubin 1.8 H (0.0-1.1) mg/dL Assessment and Plan Assessment: Seizure in patient with history of seizure not on any medication, started on Trileptal Reported possible blood in stool, and patient is complaining of from abdominal pain Depression and possible suicidal thoughts History of Boaiu-Mypkthvch-Wwham syndrome status post ablation in 2017 Plan: This is a pleasant 29 years old male who presents from half-way for possible seizure-like activity. Patient was started on Trileptal and dictated by neurology has remained stable. We'll do a CT of the abdomen and pelvis ankle psych consult Labs and medication were reviewed.. Continue same treatment. Continue with symptomatic treatment. Resume home medication. Monitor lytes and vitals. DVT and GI prophylaxis. Further recommendations of the clinical course of the patient DVT prophylaxis: No heparin for possible blood in stool GI Prophylaxis: Pepcid
[2019-10-17] MEDS: ACETAMINOPHEN TAB 325 MG TAB PO PRN ×2 (11:59→19:42)
--- NOTE | 2019-10-17 13:56 | CT ---
EXAMINATION TYPE: CT abdomen pelvis w con DATE OF EXAM: 10/17/2019 COMPARISON: None INDICATION: Generalized pain with nausea and chills DLP: 710.4 mGycm, Automated exposure control for dose reduction was used. CONTRAST: 100 mL of Isovue 300. Study performed with Oral Contrast TECHNIQUE: Axial images were obtained from above the diaphragm to the pubic rami in the axial plane a t 5 mm thick sections. Reconstructed images are reviewed on the computer in the coronal plane. FINDINGS: Limited CT sections are obtained the lung bases. The lung bases are clear. CT ABDOMEN: Liver: Normal Spleen: Normal Pancreas: Normal Adrenal glands: The adrenal glands are normal. Gallbladder: Normal Kidneys: No masses are evident. No hydronephrosis is present. No cysts are present. Delayed images were obtained through the kidneys, which remain unremarkable. Aorta: Normal Inferior vena cava: Normal. CT PELVIS: Loops of bowel within the abdomen and pelvis are normal. There are loops of bowel which are incom pletely distended or lack oral contrast limiting their evaluation. Appendix: Normal as visualized. Urinary bladder: Distended Genitourinary structures: Prostate is normal Osseous structures: No suspicious lytic or sclerotic lesions. IMPRESSIONS: 1. No acute abdominal changes to account for patient's symptoms
[2019-10-17] MEDS: LORazepam 2 MG/ML INJ IV PRN ×6 (14:19→20:24)
[2019-10-17] MEDS: SODIUM CHLORIDE 0.9% 1,000 ML IV SCH ×2 (16:13→20:48)
[2019-10-17] MEDS ORDERED: diphenhydrAMINE 50 MG/ML 1 ML VIAL IVP PRN (16:16)
--- NOTE | 2019-10-17 18:11 | CT ---
EXAMINATION TYPE: CT brain wo con DATE OF EXAM: 10/17/2019 COMPARISON: 10/14/2019 HISTORY: Seizure. CT DLP: 1113.4 mGycm Automated exposure control for dose reduction was used. Multiple axial sections were obtained of the brain without contrast. Ventricles have normal size. There is no mass effect nor midline shift. There is no sign of intracran ial hemorrhage. There is no evidence of cerebral edema. Calvarium appears intact. IMPRESSION: Normal unenhanced head CT scan. No change.
[2019-10-17 22:05] LABS: Glucose,Whole Blood 100 mg/dL (75-99)
--- NOTE | 2019-10-17 22:53 | CT ---
EXAMINATION TYPE: CT brain wo con DATE OF EXAM: 10/17/2019 COMPARISON: Today HISTORY: Fall with head injury. CT DLP: 1136.4 mGycm Automated exposure control for dose reduction was used. Ventricles and sulci appear normal. There is no mass effect nor midline shift. There is no sign of in tracranial hemorrhage. The calvarium is intact. Skull base is intact. There is no evidence of cerebra l edema. IMPRESSION: Negative unenhanced head CT scan. No change.
[2019-10-18 05:02] LABS: Basophils % (A) 0 %; Eosinophils # (A) 0.2 k/uL (0-0.7); Eosinophils % (A) 4 %; HCT 45.1 % (39.0-53.0); HGB 15.7 gm/dL (13.0-17.5); Lymphocytes # (A) 2.2 k/uL (1.0-4.8); Lymphocytes % (A) 33 %; MCHC 34.9 g/dL (31.0-37.0); MCV 91.5 fL (80.0-100.0); Monocytes # (A) 0.5 k/uL (0-1.0); Monocytes % (A) 7 %; Neutrophils # (A) 3.6 k/uL (1.3-7.7); Neutrophils % (A) 54 %; Platelet Count 255 k/uL (150-450); RBC 4.92 m/uL (4.30-5.90); RDW 12.5 % (11.5-15.5); WBC 6.7 k/uL (3.8-10.6)
[2019-10-18 05:11] LABS: African American GFR (CKD) >90 (>60 ml/min/1.73 sqM); Anion Gap 7 mmol/L; Blood Urea Nitrogen 7 mg/dL (9-20); Calcium 9.3 mg/dL (8.4-10.2); Carbon Dioxide 22 mmol/L (22-30); Chloride 110 mmol/L (98-107); Glucose 98 mg/dL (74-99); Non-African American GFR(CKD) >90 (>60 ml/min/1.73 sqM); Sodium 139 mmol/L (137-145)
[2019-10-18] MEDS: ACETAMINOPHEN TAB 325 MG TAB PO PRN (08:28)
[2019-10-18] MEDS: FAMOTIDINE 20 MG TAB PO SCH (08:28)
[2019-10-18] MEDS: OXcarbazepine 300 MG TAB PO SCH (08:28)
[2019-10-18 09:24] VITALS: TEMP 97.5
[2019-10-18] MEDS: LORazepam 2 MG/ML INJ IV PRN ×14 (09:36→11:15)
[2019-10-18] MEDS ORDERED: VALPROIC ACID ORAL SOLN 250 MG/5 ML CUP PO SCH (11:00)
[2019-10-18 11:04] VITALS: BP 102/61; PULSE 80; RESP 15
[2019-10-18] MEDS ORDERED: PROPOFOL 100 ML IV ONE (11:20)
[2019-10-18] MEDS ORDERED: ROCURONIUM BROMIDE 10 MG/ML 5 ML VIAL IV ONE (11:30)
[2019-10-18] MEDS ORDERED: PROPOFOL 1,000 MG in EMPTY BAG 1 BAG IV SCH (11:30)
[2019-10-18] MEDS ORDERED: SUCCINYLCHOLINE CHLORIDE 100 MG/5 ML SYR IV ONE (11:30)
--- NOTE | 2019-10-18 11:52 | XR ---
EXAMINATION TYPE: XR chest 1V portable DATE OF EXAM: 10/18/2019 COMPARISON: NONE HISTORY: ET tube placement TECHNIQUE: Single frontal view of the chest is obtained. FINDINGS: There is no focal air space opacity, pleural effusion, or pneumothorax seen. The cardiac silhouette size is within normal limits. The osseous structures are intact. ET tube is seen approxi mately 3.3 cm above javi. NG tube seen coiled in left upper quadrant. Contrast in colon. No overt f ailure. Heart size normal. IMPRESSION: ET tube appears in good position.
[2019-10-18] MEDS ORDERED: ACYCLOVIR SODIUM 700 MG in SODIUM CHLORIDE 0.9% 100 ML IV SCH (12:00)
[2019-10-18 12:02] LABS: ABG Base Excess -0.3 mmol/L; ABG HCO3 24 mmol/L (21-25); ABG Oxygen Saturation 99.8 % (94-97); ABG PCO2 38 mmHg (35-45); ABG PH 7.41 (7.35-7.45); ABG PO2 >400 mmHg (83-108); ABG TCO2 26 mmol/L (19-24); Allen Test Performed? Yes
--- NOTE | 2019-10-18 12:14 | P.CN ---
Psychiatric Consult - . Consult date: 10/18/19 Consult:: 10/18/19 11:44 Patient is a 29-year-old male who is coming from skilled nursing for recurrent seizures. Patient had 2 seizures at skilled nursing and has a known history of seizures in the past without being on medications and claimed that he was using marijuana to self medicate. Patient was seen by neurology and started on Trileptal however patient continues to have seizures. Psychiatry is consulted for depression and possible suicidal thoughts. General [employer] attempted to see patient at the bedside today however nurse claimed that patient recently was intubated and required Ativan for recurrent seizures and is currently in the process of being transferred to [facility] for further care. Patient was seen intubated and somnolent at the bedside with police as escort and patient was nonverbal. At this time psychiatry will sign off as patient is not able to engage in a proper evaluation. Please reconsult if necessary. 10/18/19 12:11
--- NOTE | 2019-10-18 12:18 | P.CNPUL ---
History of Present Illness Consult date: 10/18/19 Reason for consult: other (Status epilepticus) Chief complaint: Seizures History of present illness: This is a 29-year-old white male, brought in by the agency operator department to be evaluated for 2 seizures that he had while he was being transported to intermediate. Apparently the patient had multiple seizures while in intermediate, and he was brought in on 10/16/19. Seizures were described as loss of consciousness with tonic- clonic movement. And lasting for a few minutes. Patient is known to have history of seizure disorder, not compliant with his medications. His seizures have been going on for the last 8 years. Patient was tried on Keppra in the past, and apparently had some ALLERGIC reaction to Keppra and he had poor miquel ance to phenobarbital. Patient stopped taking Keppra few months back. And has not been taking any antiepileptic medication for the last 6 years. According to the chart the patient has been using marijuana to control his seizures on a daily basis. Has been using marijuana since he was 12 years old. Seizures were described as grand mal seizures. No tongue biting and no urinary incontinence. Patient went to intermediate but a week ago, and his seizures were more frequent while in intermediate. Patient was admitted on 10/15, and he was seen by neurology on consultation, recommended Ativan, and Trileptal. However the patient continues to have breakthrough seizures in spite of Ativan and Trileptal, last night the patient was transferred to the intensive care unit, and since then the patient had multiple seizures requiring multiple doses of Ativan. As I was rounding in the ICU today, patient had a witnessed seizure, it was a grand mal seizure, responded to Ativan. Considering his status epilepticus symptoms, I recommended transferring the patient to a tertiary care center since we have no neurological coverage. Patient will need prolonged EEG monitoring. And close observation. Shortly after I rounded on the patient, I was called again by the nurse that the patient had more seizures. Then I recommended intubating the patient. Patient was intubated by FLOOR SANDER, placed on mechanical ventilation, and my understanding is the patient be transferred to [facility]. I did recommend a dose of valproic acid to be given IV piggyback. Reviewed the CT of the brain which was done yesterday, and it showed no evidence of abnormality. EEG done on 10/15 showed focal cortical neuronal dysfunction in the right temporal region. No epileptiform activity was seen. And the neurologist recommended prolonged EEG monitoring. However we have no neurological coverage since the patient was seen on 10/15 by neurology. Review of Systems ROS unobtainable: due to mental status Past Medical History Past Medical History: Seizure Disorder Additional Past Medical History / Comment(s): See Dr Andino's H&P. last seizure 7 months ago, Denies taking any medications for seizures. History of Any Multi-Drug Resistant Organisms: None Reported Past Surgical History: Heart Catheterization Additional Past Surgical History / Comment(s): Supraventricular tachycardia ablation in 2009 Past Anesthesia/Blood Transfusion Reactions: No Reported Reaction Past Psychological History: No Psychological Hx Reported Smoking Status: Current some day smoker Past Alcohol Use History: Rare Past Drug Use History: Marijuana - Past Family History Mother Family Medical History: No Reported History Father Family Medical History: No Reported History, Unable to Obtain Additional Family Medical History / Comment(s): Patient states he does not know his father. He has 1 brother that has bipolar. 3 brothers that are healthy. He has one sister that is healthy. He does not have any children. Medications and Allergies Allergies Allergy/AdvReac Type Severity Reaction Status Date / Time phenobarbital Allergy Nausea & Verified 10/16/19 06:09 Vomiting & Diarrhea Physical Exam Vitals: Vital Signs Temp Pulse Pulse Resp BP BP Pulse Ox 10/18/19 11:00 80 15 102/61 98 10/18/19 10:00 104 H 16 132/88 97 10/18/19 09:00 79 20 116/70 99 10/18/19 08:00 97.5 F L 49 L 14 100/61 96 10/18/19 07:00 50 L 14 103/66 95 10/18/19 06:00 50 L 14 118/68 98 10/18/19 05:00 53 L 14 102/60 97 10/18/19 04:00 97.4 F L 60 14 108/68 97 10/18/19 03:00 53 L 12 106/70 97 10/18/19 02:00 53 L 14 105/62 97 10/18/19 01:00 50 L 14 104/65 95 10/18/19 00:00 97.7 F 57 L 14 111/66 96 10/17/19 23:00 65 16 121/70 98 10/17/19 20:00 98.0 F 80 20 138/69 95 10/17/19 18:49 86 20 138/69 97 10/17/19 16:00 120 H 22 146/78 92 L 10/17/19 14:26 88 18 122/66 96 10/17/19 14:05 88 20 136/95 96 Intake and Output 10/17/19 10/18/19 10/18/19 22:59 06:59 14:59 Intake Total 525 375 Output Total 1450 600 Balance -1450 525 -225 Intake: IV 300 Sodium Chloride 0.9% 1, 300 000 ml @ 75 mls/hr IV . [id number] ILEANA Rx#:[id number] Intake, IV Titration 525 75 Amount Sodium Chloride 0.9% 1, 525 75 000 ml @ 75 mls/hr IV . [id number] ILEANA Rx#:[id number] Output: Urine 1450 600 Other: Voiding Method Toilet Toilet Toilet # Voids 0 Weight 70.9 kg GENERAL: The patient is postictal, not responding to any verbal stimuli. I saw the patient shortly after he received a dose of Ativan for his acute seizure. HEENT: Pupils are round and equally reacting to light. EOMI. No scleral icterus. No conjunctival pallor. Normocephalic, atraumatic. No pharyngeal erythema. No thyromegaly. CARDIOVASCULAR: S1 and S2 present. No murmurs, rubs, or gallops. PULMONARY: Chest is clear to auscultation, no wheezing or crackles. -ABDOMEN: Soft, nontender, no megaly, no rebound. MUSCULOSKELETAL: No joint swelling or deformity. EXTREMITIES: No cyanosis, clubbing, or pedal edema. NEUROLOGICAL: Postictal, however according to the admitting physician patient had no neurological deficit after his last seizure. SKIN: No rashes. no petechiae. Results - Laboratory Findings CBC and BMP: 10/18/19 04:48 10/18/19 04:48 ABG ABG pH 7.41 (7.35-7.45) 10/18/19 11:47 ABG pCO2 38 mmHg (35-45) 10/18/19 11:47 ABG pO2 >400 mmHg (83-108) H 10/18/19 11:47 ABG O2 Saturation 99.8 % (94-97) H 10/18/19 11:47 PT/INR, D-dimer PT 10.8 sec (9.0-12.0) 10/16/19 12:33 INR 1.1 (<1.2) 10/16/19 12:33 Abnormal lab findings: Abnormal Labs 10/16/19 10/17/19 10/18/19 12:33 22:03 04:48 ABG pO2 ABG Total CO2 ABG O2 Saturation Chloride 110 H BUN 7 L Glucose 119 H POC Glucose (mg/dL) 100 H Total Bilirubin 1.8 H Unconjugated Bilirubin 1.8 H 10/18/19 11:47 ABG pO2 >400 H ABG Total CO2 26 H ABG O2 Saturation 99.8 H Chloride BUN Glucose POC Glucose (mg/dL) Total Bilirubin Unconjugated Bilirubin - Diagnostic Findings Additional studies: CT brain as noted in HPI Assessment and Plan Assessment: Impression: Status epilepticus, requiring intubation and mechanical ventilation. Not well-controlled with multiple doses of Ativan given earlier this morning. Acute hypoxic respiratory failure secondary to status epilepticus. Patient was actually intubated for airways protection, patient had multiple seizures [id number] early this morning. History of Uyqsz-Scwkalbek-Lpahs syndrome, previous ablation in 2017. Tobacco dependence syndrome. Marijuana abuse. History of alcoholism, patient has been sober since June 14. Recommendation: Intubation and mechanical ventilation for status epilepticus Transfer patient to a tertiary care center. Again we have no neurological coverage for the weekend. And the patient needs prolonged EEG monitoring. Placed patient on propofol post intubation. Continue valproic acid. Continue Trileptal. We will continue to follow until the patient is transferred. Discussed his condition with the admitting physician/Dr. calvin. Time with Patient: Greater than 30
--- NOTE | 2019-10-18 12:21 | P.DS ---
Providers Date of admission: 10/18/19 08:31 Attending physician: Larisa Lion Consults: 10/16/19 05:42 Consult Physician Urgent Consulting Provider: Yojana Sheikh Consult Reason/Comments: Seizures Do you want consulting provider notified?: Yes 10/17/19 11:26 Consult Physician Urgent Consulting Provider: Margarito Glass Consult Reason/Comments: depression and possible suicidal thoughts Do you want consulting provider notified?: Yes 10/17/19 21:38 Consult Physician Urgent Consulting Provider: Es Carrion Consult Reason/Comments: Seizure activity ICU Management Do you want consulting provider notified?: Yes, Notify in am Primary care physician: Stated None Hospital Course: Diagnoses: Recurrent seizures, requiring higher doses of Ativan. On antiseizure medication. Patient needed intubation for protection of the airway Reported possible blood in stool, and patient is complaining of from abdominal pain. CT of the abdomen and pelvis is negative Depression and possible suicidal thoughts. Psych consult is called and is pending History of Qcjmm-Oycpzgqob-Crgsy syndrome status post ablation in 2017 Hospital course: his is a pleasant 29 years old male with past medical history of seizure, last seizure was about 7 months ago, not on any AED, Ehnjc-Rxjpzckqv-Fywjh syndrome status post ablation by Dr. Humphreys on 02/2017, cigarette smoker, marijuana abuse Presents because of seizure like activity. He was brought by the [employer] staff for 2 seizures. Patient himself does not remember other than his been the ambulance and some officers and EMS staff told him that he had 2 seizures, he denies urinary incontinence but he said that a defecated partially, no tongue biting. neurologist evaluated the patient, EEG showing focal slowing of right temporal region with no epileptic activity, neurologist started him on Trileptal . However patient continued to have recurrent seizures so he was sent to the ICU for further monitoring, eventually patient needed more than 24-28 mg of Ativan for seizure, he remained awake after he seizure, this morning he was oriented to time place and person, he told me he isn't [facility] he told me he is 10/18/2019 and he knew the name of the president as Mr. Echeverria. He knew he came from [facility] for seizure. He was complaining of some headache but no weakness or numbness in extremities. Patient also has been evaluated by labor contractor, who recommended intubation to protect airway as patient is being transferred to tertiary care centers for recurrent seizures, I spoke with Dr. Paolo rendon at [facility] and he kindly accepted the patient Patient has no fever, no leukocytosis, however because of his recurrent seizures and EEG findings we start him empirically on acyclovir, also he was started on valproic acid Patient is currently stable to be transferred to [facility] in guarded prognosis Physical exam prior to intubation GENERAL: The patient is alert and oriented x3, not in any acute distress. Well developed, well nourished. HEENT: Pupils are round and equally reacting to light. EOMI. No scleral icterus. No conjunctival pallor. Normocephalic, atraumatic. No pharyngeal erythema. No thyromegaly. CARDIOVASCULAR: S1 and S2 present. No murmurs, rubs, or gallops. PULMONARY: Chest is clear to auscultation, no wheezing or crackles. ABDOMEN: Soft, nontender, nondistended, normoactive bowel sounds. No palpable organomegaly. MUSCULOSKELETAL: No joint swelling or deformity. EXTREMITIES: No cyanosis, clubbing, or pedal edema. NEUROLOGICAL: Cranial nerves are grossly intact. Strength is 5/5 in all 4 extremities. Sensation is intact. Meningeal signs are absent SKIN: No rashes. no petechiae. Patient Condition at Discharge: Good Plan - Discharge Summary Follow up Appointment(s)/Referral(s): None,Stated [Primary Care Provider] - 1-2 days Patient Instructions/Handouts: Recurrent Seizures in Adults (ED)
[2019-10-18] MEDS ORDERED: CHLORHEXIDINE GLUCONATE 15 ML CUP MUCOUS MEM SCH (21:00)
== END 2019-10-18 12:45 | disposition short-term general hospital (02) | DRG 100 ==
LOC: EC 02:54 → 3SCARD 05:45 → 2SICU 10-17 21:53 → OBSVTOIN 10-18 08:31
PROVIDERS: ADMIT Hospitalist; ATTEND Hospitalist
PROC: 0BH17EZ Insertion of Endotracheal Airway into Trachea, Via Natural or Artificial Opening (ICD-10-PCS; principal; 2019-10-18)
PROC: 5A1935Z Respiratory Ventilation, Less than 24 Consecutive Hours (ICD-10-PCS; 2019-10-18)
DX: G40.401 Other generalized epilepsy and epileptic syndromes, not intractable, with status epilepticus (principal); J96.01 Acute respiratory failure with hypoxia; R45.851 Suicidal ideations; K92.1 Melena; Z11.59 Encounter for screening for other viral diseases; F10.21 Alcohol dependence, in remission; F17.210 Nicotine dependence, cigarettes, uncomplicated; I45.6 Pre-excitation syndrome; F12.10 Cannabis abuse, uncomplicated; F32.9 Major depressive disorder, single episode, unspecified; Z76.5 Malingerer [conscious simulation]; Z88.8 Allergy status to other drugs, medicaments and biological substances; Z98.890 Other specified postprocedural states; Z81.8 Family history of other mental and behavioral disorders; Z91.14 Patient's other noncompliance with medication regimen; Z71.3 Dietary counseling and surveillance
CPT/HCPCS: 36600; 70450; 71045; 74177; 80048; 80076; 82550; 82805; 83735; 85025; 85027; 85610; 85730; 94002; 95816; 99285

== ENCOUNTER 2019-10-22 12:50 | Inpatient (IN) | payer OTHER ==
[2019-10-22] MEDS ORDERED: SODIUM CHLORIDE 0.9% 500 ML 500 ML IV ONE (13:00)
--- NOTE | 2019-10-22 13:04 | ED ---
General Adult HPI - General Chief complaint: Seizure Stated complaint: Seizure Time Seen by Provider: 10/22/19 12:50 Source: patient, EMS, RN notes reviewed, old records reviewed Mode of arrival: EMS Limitations: no limitations - History of Present Illness Initial comments: This is a 29-year-old male who presents to the emergency department with a past medical history significant for seizures and more recently significant for status epilepticus. Patient comes in today because he had 5 short episodes of seizures according to the skilled nursing staff. Patient denies remembering any of the incident. Patient denies having a fever recently. Patient currently is very poor historian does not remember taking any medications for seizures does not remember being at [facility] recently. Patient states other than feeling sore he feels at his baseline. - Related Data Home Medications Medication Instructions Recorded Confirmed Divalproex [Depakote] 1,000 mg PO TID 10/22/19 10/22/19 Thiamine HCl [Vitamin B-1] 300 mg PO QAM 10/22/19 10/22/19 Allergies Allergy/AdvReac Type Severity Reaction Status Date / Time phenobarbital Allergy Nausea & Verified 10/16/19 06:09 Vomiting & Diarrhea Review of Systems ROS Statement: Those systems with pertinent positive or pertinent negative responses have been documented in the HPI. ROS Other: All systems not noted in ROS Statement are negative. Past Medical History Past Medical History: Seizure Disorder Additional Past Medical History / Comment(s): See Dr Andino's H&P. multiple seizures in October/2019, Denies taking any medications for seizures. History of Any Multi-Drug Resistant Organisms: None Reported Past Surgical History: Heart Catheterization Additional Past Surgical History / Comment(s): Supraventricular tachycardia ablation in 2009 Past Anesthesia/Blood Transfusion Reactions: No Reported Reaction Past Psychological History: No Psychological Hx Reported Smoking Status: Current some day smoker Past Alcohol Use History: Rare Past Drug Use History: Marijuana - Past Family History Mother Family Medical History: No Reported History Father Family Medical History: No Reported History, Unable to Obtain Additional Family Medical History / Comment(s): Patient states he does not know his father. He has 1 brother that has bipolar. 3 brothers that are healthy. H georgiana has one sister that is healthy. He does not have any children. General Exam - General Exam Comments Initial Comments: GENERAL: Patient is well-developed and well-nourished. Patient is nontoxic and well- hydrated and is in no acute distress. ENT: Neck is soft and supple. No significant lymphadenopathy is noted. Oropharynx is clear. Moist mucous membranes. Neck has full range of motion without eliciting any pain. EYES: The sclera were anicteric and conjunctiva were pink and moist. Extraocular movements were intact and pupils were equal round and reactive to light. Eyelids were unremarkable. PULMONARY: Unlabored respirations. Good breath sounds bilaterally. CARDIOVASCULAR: There is a regular rate and rhythm without any murmurs gallops or rubs. ABDOMEN: Soft and nontender with normal bowel sounds. SKIN: Skin is clear with no lesions or rashes and otherwise unremarkable. NEUROLOGIC: Patient is alert and oriented 2. Cranial nerves II through XII are grossly intact. Motor and sensory are also intact. Normal speech, volume and content. Symmetrical smile. MUSCULOSKELETAL: Normal extremities with adequate strength and full range of motion. LYMPHATICS: No significant lymphadenopathy is noted PSYCHIATRIC: Normal psychiatric evaluation. Limitations: no limitations Course Vital Signs 10/22/19 12:53 Temperature 96.8 F L Pulse Rate 73 Respiratory 16 Rate Blood Pressure 129/75 O2 Sat by Pulse 96 Oximetry Medical Decision Making - Medical Decision Making EKG shows normal sinus rhythm at 76 bpm MI interval 226 dresses 92 QT interval 360 QTC is 405. Patient's EKG shows no ST segment elevation or depression. I spoke with Dr. Flanagan he agreed to admit the patient admitted the patient I consulted neurology and wrote admitting orders. According to the nurse patient had another seizure in the emergency room however he was able to avoid his hand falling on his face during the seizure and she questioned whether it was a real seizure or not. - Lab Data Result diagrams: 10/22/19 13:15 Lab Results 10/22/19 10/22/19 Range/Units 13:15 13:15 WBC 4.4 (3.8-10.6) k/uL RBC 4.61 (4.30-5.90) m/uL Hgb 14.6 (13.0-17.5) gm/dL Hct 42.2 (39.0-53.0) % MCV 91.4 (80.0-100.0) fL MCH 31.7 (25.0-35.0) pg MCHC 34.6 (31.0-37.0) g/dL RDW 12.3 (11.5-15.5) % Plt Count 266 (150-450) k/uL Neutrophils % 67 % Lymphocytes % 20 % Monocytes % 7 % Eosinophils % 4 % Basophils % 0 % Neutrophils # 2.9 (1.3-7.7) k/uL Lymphocytes # 0.9 L (1.0-4.8) k/uL Monocytes # 0.3 (0-1.0) k/uL Eosinophils # 0.2 (0-0.7) k/uL Basophils # 0.0 (0-0.2) k/uL Magnesium 2.0 (1.6-2.3) mg/dL Valproic Acid 80.9 ug/mL Disposition Clinical Impression: Status epilepticus Disposition: ADMITTED IP TO THIS HOSP Referrals: None,Stated [Primary Care Provider] - 1-2 days Time of Disposition: 14:49
[2019-10-22 13:32] LABS: Basophils % (A) 0 %; Eosinophils # (A) 0.2 k/uL (0-0.7); Eosinophils % (A) 4 %; HCT 42.2 % (39.0-53.0); HGB 14.6 gm/dL (13.0-17.5); Lymphocytes # (A) 0.9 k/uL (1.0-4.8); Lymphocytes % (A) 20 %; MCH 31.7 pg (25.0-35.0); MCHC 34.6 g/dL (31.0-37.0); MCV 91.4 fL (80.0-100.0); Mean Platelet Volume 7.1; Monocytes # (A) 0.3 k/uL (0-1.0); Monocytes % (A) 7 %; Neutrophils # (A) 2.9 k/uL (1.3-7.7); Neutrophils % (A) 67 %; Platelet Count 266 k/uL (150-450); RBC 4.61 m/uL (4.30-5.90); RDW 12.3 % (11.5-15.5); WBC 4.4 k/uL (3.8-10.6)
[2019-10-22 13:48] LABS: Valproic Acid (Depakene) 80.9 ug/mL
[2019-10-22] MEDS ORDERED: SODIUM CHLORIDE 0.9% 1,000 ML IV ONE (14:51)
[2019-10-22] MEDS ORDERED: DIVALPROEX 500 MG TABLET.DR PO STA ×2 (17:34→18:41)
--- NOTE | 2019-10-22 19:03 | P.HPIM ---
History of Present Illness 29-year-old male came in the after he had 5 episodes of seizures according to the long-term staff patient to denies remembering anything. Patient denied any bowel or bladder incontinence. Patient had a tonic-clonic activity. Patient had seizures since his she'll heard patient was started on multiple medications he is to be in A 6 month ago she has not been taking this medication very well because of which patient was still having seizures. Patient states marijuana was the one thing that was helping him with the seizures that he cannot use marijuana anymore as patient is on probation. Patient's antiseizure medications was a were changed to Depakote recently he doesn't of February the dose but he says he takes 4 pills of that as per the documentation it looks like patient takes thousand milligrams 3 times a day although this needs to be verified. His Depakote levels are within normal limits. Patient wanted to leave AMA as he wanted to smoke because of which are emergently went ahead and saw the patient discussed the case with the neurologist awaiting for his input patient appears to have seizures because of his noncompliance with his medications patient did take 1 pill today has not been taking his medications regularly as he doesn't have any of his prescriptions refilled. Review of Systems REVIEW OF SYSTEMS: CONSTITUTIONAL: No fever, no malaise, no fatigue. HEENT: No recent visual problems or hearing problems. Denied any sore throat. CARDIOVASCULAR: No chest pain, orthopnea, PND, no palpitations, no syncope. PULMONARY: No shortness of breath, no cough, no hemoptysis. GASTROINTESTINAL: No diarrhea, no nausea, no vomiting, no abdominal pain. NEUROLOGICAL: No headaches, no weakness, no numbness. HEMATOLOGICAL: Denies any bleeding or petechiae. GENITOURINARY: Denies any burning micturition, frequency, or urgency. MUSCULOSKELETAL/RHEUMATOLOGICAL: Denies any joint pain, swelling, or any muscle pain. ENDOCRINE: Denies any polyuria or polydipsia. The rest of the 14-point review of systems is negative. 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 He has 1 brother that has bipolar. 3 brothers that are healthy. He has one sister that is healthy. He does not have any children. Medications and Allergies Home Medications Medication Instructions Recorded Confirmed Type Divalproex [Depakote] 1,000 mg PO TID 10/22/19 10/22/19 History Thiamine HCl [Vitamin B-1] 300 mg PO QAM 10/22/19 10/22/19 History Allergies Allergy/AdvReac Type Severity Reaction Status Date / Time phenobarbital Allergy Nausea & Verified 10/16/19 06:09 Vomiting & Diarrhea Physical Exam Vitals: Vital Signs Temp Pulse Resp BP Pulse Ox 10/22/19 16:32 98.1 F 70 16 138/84 95 10/22/19 12:53 96.8 F L 73 16 129/75 96 Intake and Output 10/22/19 10/22/19 10/22/19 06:59 14:59 22:59 Other: Weight 52.163 kg 52.163 kg PHYSICAL EXAMINATION: GENERAL: The patient is alert and oriented x3, not in any acute distress. Well developed, well nourished. HEENT: Pupils are round and equally reacting to light. EOMI. No scleral icterus. No conjunctival pallor. Normocephalic, atraumatic. No pharyngeal erythema. No thyromegaly. CARDIOVASCULAR: S1 and S2 present. No murmurs, rubs, or gallops. PULMONARY: Chest is clear to auscultation, no wheezing or crackles. ABDOMEN: Soft, nontender, nondistended, normoactive bowel sounds. No palpable organomegaly. MUSCULOSKELETAL: No joint swelling or deformity. EXTREMITIES: No cyanosis, clubbing, or pedal edema. NEUROLOGICAL: Gross neurological examination did not reveal any focal deficits. SKIN: No rashes. Results CBC & Chem 7: 07/09/20 13:15 Labs: Abnormal Lab Results - Last 24 Hours (Table) 10/22/19 Range/Units 13:15 Lymphocytes # 0.9 L (1.0-4.8) k/uL Thrombosis Risk Factor Assmnt - Choose All That Apply Any of the Below Risk Factors Present?: No Other Risk Factors: No Other congenital or acquired thrombophilia - If yes, enter type in comment: No Thrombosis Risk Factor Assessment Level: Very Low Risk Assessment and Plan Plan: Breakthrough seizures: Due to noncompliance with medications: Patient probably will be resumed on his home medications will be officially discharged. Awaiting recommendations from neurology had call the neurologist who will evaluate the patient MAHIN and depending on the neurologist and put or prescribe him antiseizure medications mostly Depakote the same home dose. -Nicotine abuse: Counseling was provided -History of ADD and ADHD History of marijuana use
--- NOTE | 2019-10-22 19:21 | P.DS ---
Providers Date of admission: 10/22/19 14:51 Attending physician: Sean Flanagan Consults: 10/22/19 14:51 Consult Physician Urgent Consulting Provider: Yojana Sheikh Reason/Comments: seizures Do you want consulting provider notified?: Yes Primary care physician: Stated None Hospital Course: Patient was evaluated by neurology neurologist recommended Depakote 500 twice a day and patient will be discharged on this dose. Patient will closely follow up with his neurologist as an outpatient Plan - Discharge Summary Discharge Rx Participant: No New Discharge Prescriptions: New Divalproex ER [Depakote ER] 500 mg PO BID #30 tab Discontinued Divalproex [Depakote] 1,000 mg PO TID No Action Thiamine HCl [Vitamin B-1] 300 mg PO QAM Discharge Medication List Divalproex ER [Depakote ER] 500 mg PO BID #30 tab 10/22/19 [Rx] Thiamine HCl [Vitamin B-1] 300 mg PO QAM 10/22/19 [History] Follow up Appointment(s)/Referral(s): Johnny Rangel MD [REFERRING] - 1 Week Ramesh Mistry MD [REFERRING] - 1 Week Discharge Disposition: HOME SELF-CARE
--- NOTE | 2019-10-22 19:51 | P.CNNES ---
History of Present Illness Consult date: 10/22/19 Requesting physician: Ken Snyder Reason for Consult: Seizures History of Present Illness: Patient is a 29-year-old male who was recently seen in hospital consultation on 10/16/2019 for seizure disorder. Please refer to my note for details. Patient apparently was placed on Trileptal 300 mg twice a day. Patient subsequently had recurrence of seizures. He ended up at [facility], where he underwent continuous EEG monitoring, which revealed generalized spike and wave discharges as well as high amplitude alpha, beta frequencies that represented a concern for further generalized seizures events. Patient was placed on Depakote, and discharged back to shelter. On the discharge summary, it was mentioned patient was discharged on thiamine 100 mg and Depakote 250 mg, 2 capsules by Mouth Every 8 Hours (1000 mg every 8 hours). Patient apparently had a seizure in the shelter and was transferred back to [facility]. Patient apparently has been released from custody and will be going home, as he is considered high risk. Patient believes that he did not receive Depakote in the shelter, that led to breakthrough seizure. Review of Systems Body soreness otherwise negative. 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 He has 1 brother that has bipolar. 3 brothers that are healthy. He has one sister that is healthy. He does not have any children. Medications and Allergies Home Medications Medication Instructions Recorded Confirmed Type Divalproex ER [Depakote ER] 500 mg PO BID #30 tab 10/22/19 Rx Thiamine HCl [Vitamin B-1] 300 mg PO QAM 10/22/19 10/22/19 History Allergies Allergy/AdvReac Type Severity Reaction Status Date / Time phenobarbital Allergy Nausea & Verified 10/16/19 06:09 Vomiting & Diarrhea Physical Examination - Vital Signs Vital Signs: Vital Signs Temp Pulse Resp BP Pulse Ox 10/22/19 16:32 98.1 F 70 16 138/84 95 10/22/19 12:53 96.8 F L 73 16 129/75 96 Intake and Output 10/22/19 10/22/19 10/22/19 06:59 14:59 22:59 Other: Weight 52.163 kg 52.163 kg Results - Laboratory Findings CBC and BMP: 10/22/19 13:15 Abnormal Lab Findings: Abnormal Labs 10/22/19 13:15 Lymphocytes # 0.9 L Assessment and Plan Assessment: * Primary generalized epilepsy. * Medication noncompliance. * Chronic marijuana use. * History of alcohol abuse. Plan: * Patient was discharged on Depakote ER 1000 mg every 8 hours. It appears to be a very high-dose to start. We will discharge patient on Depakote ER 500 mg capsules, 2 capsules twice a day (1000 mg twice a day) * A prescription good for one month supply was provided. * Patient will follow-up with a neurologist in 2-3 weeks. * Patient was recommended no driving unless 6 months seizure-free, climbing ladders, operate dangerous machinery or unsupervised swimming.
[2019-10-23 10:11] VITALS: BP 138/84; PULSE 70; RESP 16; TEMP 98.1
== END 2019-10-22 19:55 | disposition home or self-care (01) | DRG 101 ==
LOC: EC 12:50 → 5NMEDONC 14:51
PROVIDERS: ADMIT Internal Medicine; ATTEND Internal Medicine
DX: G40.409 Other generalized epilepsy and epileptic syndromes, not intractable, without status epilepticus (principal); F12.90 Cannabis use, unspecified, uncomplicated; F17.200 Nicotine dependence, unspecified, uncomplicated; B19.20 Unspecified viral hepatitis C without hepatic coma; F90.9 Attention-deficit hyperactivity disorder, unspecified type; T50.996A Underdosing of other drugs, medicaments and biological substances, initial encounter; Z79.899 Other long term (current) drug therapy; Z88.8 Allergy status to other drugs, medicaments and biological substances; Z71.6 Tobacco abuse counseling; Z91.128 Patient's intentional underdosing of medication regimen for other reason; Z11.59 Encounter for screening for other viral diseases
CPT/HCPCS: 36415; 80164; 80183; 83735; 85025; 93005; 96360; 96361; 99285

== ENCOUNTER 2019-11-26 01:10 | Emergency (ER) | payer OTHER ==
[2019-11-26 01:17] VITALS: BP 124/81; PULSE 118; RESP 18; TEMP 99.2
--- NOTE | 2019-11-26 01:34 | ED ---
General Adult HPI - General Chief complaint: Recheck/Abnormal Lab/Rx Stated complaint: poss seizure Time Seen by Provider: 11/26/19 01:17 Source: patient, EMS Mode of arrival: EMS - History of Present Illness Initial comments: Patient is 29-year-old man brought by ambulance for evaluation. Patient's reportedly found sleeping in a car that was running. The patient is denying any complaints and states he feels well and that he would just like to go -: minutes(s) Severity scale (1-10): 0 Improves with: none Worsens with: none Associated Symptoms: denies other symptoms - Related Data Home Medications Medication Instructions Recorded Confirmed Thiamine HCl [Vitamin B-1] 300 mg PO QAM 10/22/19 10/22/19 Previous Rx's Medication Instructions Recorded Divalproex ER [Depakote ER] 500 mg PO BID #30 tab 10/22/19 Allergies Allergy/AdvReac Type Severity Reaction Status Date / Time phenobarbital Allergy Nausea & Verified 11/26/19 01:16 Vomiting & Diarrhea Review of Systems ROS Statement: Those systems with pertinent positive or pertinent negative responses have been documented in the HPI. ROS Other: All systems not noted in ROS Statement are negative. Cardiovascular: Denies: chest pain Gastrointestinal: Denies: abdominal pain, nausea, vomiting Neurological: Denies: headache Psychiatric: Denies: homicidal thoughts, suicidal thoughts Past Medical History Past Medical History: Liver Disease, Seizure Disorder Additional Past Medical History / Comment(s): Seizures/status epilepticus, pt admitted to [facility] 10/22/19 with seizure and was vented/found to have hepatitis C, pt states he has had diarrhea x 5 days History of Any Multi-Drug Resistant Organisms: None Reported Past Surgical History: Heart Catheterization Additional Past Surgical History / Comment(s): 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 He has 1 brother that has bipolar. 3 brothers that are healthy. He has one sister that is healthy. He does not have any children. General Exam General appearance: alert, in no apparent distress Head exam: Present: atraumatic, normocephalic Eye exam: Present: normal appearance Respiratory exam: Present: normal lung sounds bilaterally. Absent: respiratory distress, wheezes, rales, rhonchi, stridor Cardiovascular Exam: Present: regular rate, normal rhythm, normal heart sounds. Absent: systolic murmur, diastolic murmur, rubs, gallop Neurological exam: Present: alert, oriented X3 Course Vital Signs 11/26/19 01:11 Temperature 99.2 F Pulse Rate 118 H Respiratory 18 Rate Blood Pressure 124/81 O2 Sat by Pulse 97 Oximetry Medical Decision Making - Medical Decision Making Patient is 29-year-old man who reportedly found sleeping in a car that was running. The patient is declining to have a further workup. He states that he feels well and wants to go. He does display apparently normal mental status and does appear to be able to make this decision at this time. Discussed return parameters Disposition Clinical Impression: Feared condition not demonstrated Disposition: HOME SELF-CARE Condition: Good Instructions (If sedation given, give patient instructions): Fatigue (ED) Is patient prescribed a controlled substance at d/c from ED?: No Referrals: Enriqueta Alvarez MD [Primary Care Provider] - 1-2 days
== END 2019-11-26 01:42 | disposition home or self-care (01) ==
LOC: EC 01:10
DX: Z71.1 Person with feared health complaint in whom no diagnosis is made (principal); F17.200 Nicotine dependence, unspecified, uncomplicated; Z88.8 Allergy status to other drugs, medicaments and biological substances
CPT/HCPCS: 99284

== ENCOUNTER 2020-03-09 12:28 | Emergency (ER) | payer OTHER ==
[2020-03-09 12:35] VITALS: RESP 16
--- NOTE | 2020-03-09 13:08 | ED ---
Seizure HPI - General Chief Complaint: Seizure Stated Complaint: Seizures Time Seen by Provider: 03/09/20 12:35 Source: patient Mode of arrival: EMS Limitations: no limitations - History of Present Illness Initial Comments: Patient is a 29-year-old male with past history of seizure disorder who presents emergency Department with reported break through seizure. He states he has not taken his medication in 4 days. Patient was kicked out of his house 4 days ago and was incarcerated 2 days ago. Patient states this is the only medication he is on. Denies history of alcohol withdrawal seizures or abuse. Seizure today was unwitnessed by the staff with the patient. He was reportedly told that the patient had a seizure for approximately 30 minutes. He got to the patient when he was post ictal. EMS transported the patient's a and O 3. There is no tongue biting or loss of bowel or bladder function. The patient did not injure himself during the seizure. The remainder of HPI is limited as the patient does not recall the event. - Related Data Previous Rx's Medication Instructions Recorded Divalproex Sodium [Depakote] 500 mg PO BID #60 tablet. 03/09/20 Allergies Allergy/AdvReac Type Severity Reaction Status Date / Time phenobarbital AdvReac Nausea & Verified 03/09/20 18:13 Vomiting & Diarrhea Review of Systems ROS Statement: Those systems with pertinent positive or pertinent negative responses have been documented in the HPI. ROS Other: All systems not noted in ROS Statement are negative. 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 He has 1 brother that has bipolar. 3 brothers that are healthy. He has one sister that is healthy. He does not have any children. General Exam Limitations: no limitations General appearance: alert, in no apparent distress Head exam: Present: atraumatic, normocephalic, normal inspection Eye exam: Present: normal appearance, PERRL, EOMI. Absent: scleral icterus, conjunctival injection, periorbital swelling ENT exam: Present: normal exam, mucous membranes moist Neck exam: Present: normal inspection. Absent: tenderness, meningismus, lymphadenopathy Respiratory exam: Present: normal lung sounds bilaterally. Absent: respiratory distress, wheezes, rales, rhonchi, stridor Cardiovascular Exam: Present: regular rate, normal rhythm, normal heart sounds. Absent: systolic murmur, diastolic murmur, rubs, gallop, clicks GI/Abdominal exam: Present: soft, normal bowel sounds. Absent: distended, tenderness, guarding, rebound, rigid Extremities exam: Present: normal inspection, full ROM, normal capillary refill. Absent: tenderness, pedal edema, joint swelling, calf tenderness Back exam: Present: normal inspection Neurological exam: Present: alert, oriented X3, CN II-XII intact Psychiatric exam: Present: normal affect, normal mood Skin exam: Present: warm, dry, intact, normal color. Absent: rash Course Vital Signs 03/09/20 03/09/20 12:32 14:32 Temperature 98.4 F 98 F Pulse Rate 66 78 Respiratory 16 16 Rate Blood Pressure 116/69 132/74 O2 Sat by Pulse 97 98 Oximetry Medical Decision Making - Medical Decision Making Upon arrival patient is placed into room 29. A thorough history and physical exam was performed. Recommended laboratory studies which demonstrated an undetectable valproic acid level. Patient was given his dose in the emergency department. I did perform a CT of the patient's brain as the seizure was witnessed by anyone present. It demonstrates no acute intracranial process. No evidence acute fracture or subluxation the cervical spine. Patient remained seizure-free in the emergency department. I did write him a 30 day supply of medications for which the patient was given to the nursing home staff. He was given his nighttime dose to take with him. I recommended he follow up with his neurologist and take his medications as directed. Return to the emergency room for any new or worsening symptoms. She was discharged home in stable condition - Lab Data Result diagrams: 03/09/20 13:00 03/09/20 13:00 Lab Results 03/09/20 03/09/20 03/09/20 Range/Units 13:00 13:00 13:33 WBC 6.0 (3.8-10.6) k/uL RBC 5.08 (4.30-5.90) m/uL Hgb 15.8 (13.0-17.5) gm/dL Hct 44.9 (39.0-53.0) % MCV 88.4 (80.0-100.0) fL MCH 31.1 (25.0-35.0) pg MCHC 35.2 (31.0-37.0) g/dL RDW 12.7 (11.5-15.5) % Plt Count 312 (150-450) k/uL MPV 6.7 Neutrophils % 76 % Lymphocytes % 16 % Monocytes % 6 % Eosinophils % 1 % Basophils % 0 % Neutrophils # 4.5 (1.3-7.7) k/uL Lymphocytes # 0.9 L (1.0-4.8) k/uL Monocytes # 0.3 (0-1.0) k/uL Eosinophils # 0.1 (0-0.7) k/uL Basophils # 0.0 (0-0.2) k/uL Sodium 136 L (137-145) mmol/L Potassium 4.1 (3.5-5.1) mmol/L Chloride 107 (98-107) mmol/L Carbon Dioxide 23 (22-30) mmol/L Anion Gap 6 mmol/L BUN 11 (9-20) mg/dL Creatinine 0.63 L (0.66-1.25) mg/dL Est GFR (CKD-EPI)AfAm >90 (>60 ml/min/1.73 sqM) Est GFR (CKD-EPI)NonAf >90 (>60 ml/min/1.73 sqM) Glucose 118 H (74-99) mg/dL Calcium 9.7 (8.4-10.2) mg/dL Total Bilirubin 0.8 (0.2-1.3) mg/dL AST 25 (17-59) U/L ALT 21 (4-49) U/L Alkaline Phosphatase 81 (38-126) U/L Total Protein 7.4 (6.3-8.2) g/dL Albumin 4.1 (3.5-5.0) g/dL Urine Opiates Screen Not Detected (NotDetected) Ur Oxycodone Screen Not Detected (NotDetected) Urine Methadone Screen Not Detected (NotDetected) Ur Propoxyphene Screen Not Detected (NotDetected) Ur Barbiturates Screen Not Detected (NotDetected) Valproic Acid <10.0 ug/mL U Tricyclic Antidepress Not Detected (NotDetected) Ur Phencyclidine Scrn Not Detected (NotDetected) Ur Amphetamines Screen Not Detected (NotDetected) U Methamphetamines Scrn Not Detected (NotDetected) U Benzodiazepines Scrn Not Detected (NotDetected) Urine Cocaine Screen Not Detected (NotDetected) U Marijuana (THC) Screen Detected H (NotDetected) - EKG Data EKG Comments: EKG demonstrates a sinus bradycardia with a rate of 59. CO interval 122. QRS 94. QTC 382. No acute ST segment elevations or depressions concerning for ischemic changes Disposition Clinical Impression: Breakthrough seizure Disposition: HOME SELF-CARE Condition: Stable Instructions (If sedation given, give patient instructions): Recurrent Seizures in Adults (ED) Additional Instructions: Follow up with your PCP. Take your medications as directed. You will be given 1 depakote pill to take with you - taken this tonight around 8 pm. Return to the ED for any new or worsening symptoms. Prescriptions: Divalproex Sodium [Depakote] 500 mg PO BID #60 tablet.dr Is patient prescribed a controlled substance at d/c from ED?: No Referrals: None,Stated [Primary Care Provider] - 1-2 days Time of Disposition: 14:08
[2020-03-09 13:11] LABS: Basophils % (A) 0 %; Eosinophils # (A) 0.1 k/uL (0-0.7); Eosinophils % (A) 1 %; HCT 44.9 % (39.0-53.0); HGB 15.8 gm/dL (13.0-17.5); Lymphocytes # (A) 0.9 k/uL (1.0-4.8); Lymphocytes % (A) 16 %; MCH 31.1 pg (25.0-35.0); MCHC 35.2 g/dL (31.0-37.0); MCV 88.4 fL (80.0-100.0); Mean Platelet Volume 6.7; Monocytes # (A) 0.3 k/uL (0-1.0); Monocytes % (A) 6 %; Neutrophils # (A) 4.5 k/uL (1.3-7.7); Neutrophils % (A) 76 %; Platelet Count 312 k/uL (150-450); RBC 5.08 m/uL (4.30-5.90); RDW 12.7 % (11.5-15.5)
[2020-03-09 13:23] LABS: ALT 21 U/L (4-49); AST 25 U/L (17-59); African American GFR (CKD) >90 (>60 ml/min/1.73 sqM); Albumin 4.1 g/dL (3.5-5.0); Alkaline Phosphatase 81 U/L (38-126); Anion Gap 6 mmol/L; Blood Urea Nitrogen 11 mg/dL (9-20); Calcium 9.7 mg/dL (8.4-10.2); Carbon Dioxide 23 mmol/L (22-30); Chloride 107 mmol/L (98-107); Glucose 118 mg/dL (74-99); Non-African American GFR(CKD) >90 (>60 ml/min/1.73 sqM); Potassium 4.1 mmol/L (3.5-5.1); Sodium 136 mmol/L (137-145); Total Bilirubin 0.8 mg/dL (0.2-1.3); Total Protein 7.4 g/dL (6.3-8.2)
[2020-03-09 13:28] LABS: Valproic Acid (Depakene) <10.0 ug/mL
--- NOTE | 2020-03-09 13:53 | CT ---
EXAMINATION TYPE: CT brain rhina tompkins DATE OF EXAM: 03/09/2020 COMPARISON: 10/17/2019 HISTORY: Seizure today. Headache since. CT DLP: 1299.[address] Brain: Unenhanced CT of the brain was performed. The ventricles, basal cisterns and sulci overlying the cerebral convexities demonstrate a normal appe arance. There is no evidence for intracranial hemorrhage or sulcal effacement. No mass effects are seen. If symptoms persist consider MRI. Osseous calvarium is intact. IMPRESSION: No acute intracranial process CT Cervical Spine: Unenhanced CT of the cervical spine was performed with bone and soft tissue window settings submitted . Coronal and sagittal reconstruction is obtained. There is normal alignment and prevertebral soft tissues. I do not see evidence for fracture or sublu xation. No significant degenerative changes are present. The lung apices are clear. IMPRESSION: No evidence for acute fracture or subluxation of the cervical spine.
[2020-03-09 14:02] LABS: Amphetamine Screen,Urine Not Detected (NotDetected); Barbiturate Screen,Urine Not Detected (NotDetected); Benzodiazepines Screen,Urine Not Detected (NotDetected); Cocaine Screen,Urine Not Detected (NotDetected); Methadone Screen, Urine Not Detected (NotDetected); Opiate Screen,Urine Not Detected (NotDetected); Oxycodone Screen, Urine Not Detected (NotDetected); Phencyclidine Screen,Urine Not Detected (NotDetected); Tricyclic Antidepressant,Urine Not Detected (NotDetected); Urn Cannabinoid Scrn Detected (NotDetected)
[2020-03-09] MEDS ORDERED: DIVALPROEX 500 MG TABLET.DR PO STA ×2 (14:06→14:14)
[2020-03-09 14:33] VITALS: BP 132/74; PULSE 78; TEMP 98
== END 2020-03-09 14:32 | disposition home or self-care (01) ==
LOC: EC 12:28
DX: R56.9 Unspecified convulsions (principal); F17.200 Nicotine dependence, unspecified, uncomplicated; Z88.8 Allergy status to other drugs, medicaments and biological substances
CPT/HCPCS: 36415; 70450; 72125; 80053; 80164; 80306; 85025; 93005; 99284

== ENCOUNTER 2020-03-09 17:23 | Observation (INO) | payer OTHER ==
[2020-03-09] MEDS ORDERED: SODIUM CHLORIDE 0.9% 1,000 ML IV STA ×2 (17:37)
[2020-03-09] MEDS ORDERED: DIAZEPAM 5 MG/ML 2 ML INJ IVP STA (17:37)
[2020-03-09] MEDS ORDERED: levETIRAcetam IV 1,000 MG in SALINE 1 100ML.BAG IVPB STA (17:38)
--- NOTE | 2020-03-09 17:38 | ED ---
Seizure HPI <Raji Nobles - Last Filed: 03/09/20 20:01> - General Source: EMS, RN notes reviewed, old records reviewed Mode of arrival: EMS Limitations: no limitations - History of Present Illness MD Complaint: seizure, possible seizure -: days(s) Description of Episode: loss of consciousness, tonic-clonic movement -: minutes(s) Witnessed: yes - by bystander Trauma: Yes Seizure History: known seizure disorder, history of non-compliance with treatment Place: other (Patient from incarceration) Possible Precipitating Event: none Associated Symptoms: denies other symptoms Treatments Prior to Arrival: none <Ken Linder - Last Filed: 03/09/20 20:49> - General Chief Complaint: Seizure Stated Complaint: seizures - History of Present Illness Initial Comments: This is a 29-year-old male DF for evaluation patient who presents to the ER for evaluation regards to seizure-like activity ER visit earlier today for seizure. Sent back to [facility] had another seizure which resulted in some head trauma minimal bleeding her face, forehead. Patient is unresponsive, postictal currently. He does have history of seizures (Ken Linder) - Related Data Previous Rx's Medication Instructions Recorded Divalproex Sodium [Depakote] 500 mg PO BID #60 tablet. 03/09/20 Allergies Allergy/AdvReac Type Severity Reaction Status Date / Time phenobarbital AdvReac Nausea & Verified 03/09/20 18:13 Vomiting & Diarrhea Review of Systems ROS Other: All systems not noted in ROS Statement are negative. <Raji Nobles - Last Filed: 03/09/20 20:01> ROS Other: All systems not noted in ROS Statement are negative. <Ken Linder - Last Filed: 03/09/20 20:49> ROS Statement: Those systems with pertinent positive or pertinent negative responses have been documented in the HPI. 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 He has 1 brother that has bipolar. 3 brothers that are healthy. He has one sister that is healthy. He does not have any children. <Ken Linder - Last Filed: 03/09/20 20:49> Course <Ken Linder - Last Filed: 03/09/20 20:49> Vital Signs 03/09/20 17:26 Temperature 98.5 F Pulse Rate 64 Respiratory 18 Rate Blood Pressure 120/68 O2 Sat by Pulse 98 Oximetry - Reevaluation(s) Reevaluation #1: 03/09/20 20:44 Medical record is reviewed (Ken Linder) Reevaluation #2: 03/09/20 20:45 Patient in [facility] informed of need for admission 03/09/20 20:48 multiple recurrent seizures here in the ED (Ken Linder) - Consultations Consultation #1: spoke w sound agree to admission (Ken Linder) Procedures - Laceration Laceration #1 Consent Obtained: verbal consent Site: face (left ) Size (cm): 2 Description: linear Anesthetic Used: lidocaine 1% Anesthesia Technique: local infiltration Amount (mls): 2 Pre-repair: wound explored, irrigated extensively, deep structures intact Type of Sutures: nylon Size of Sutures: 5-0 Number of Sutures: 2 Technique: simple, interrupted Patient Tolerated Procedure: well, no complications <Raji Nobles - Last Filed: 03/09/20 20:01> Medical Decision Making - Lab Data Result diagrams: 03/09/20 17:55 03/09/20 17:55 <Raji Nobles - Last Filed: 03/09/20 20:01> - Lab Data Result diagrams: 03/09/20 17:55 03/09/20 17:55 - EKG Data -: EKG Interpreted by Me (EKG shows rate 58 MI 112 QRS 92 QTc 388) <Ken Linder - Last Filed: 03/09/20 20:49> - Medical Decision Making 29 male to the ED co recurrent seizure, prolonged postictal, status epilepticus, will admit for neurological evaluation (Ken Linder) - Lab Data Lab Results 03/09/20 03/09/20 Range/Units 17:55 17:55 WBC 6.5 (3.8-10.6) k/uL RBC 5.03 (4.30-5.90) m/uL Hgb 15.1 (13.0-17.5) gm/dL Hct 45.0 (39.0-53.0) % MCV 89.3 (80.0-100.0) fL MCH 30.1 (25.0-35.0) pg MCHC 33.7 (31.0-37.0) g/dL RDW 13.3 (11.5-15.5) % Plt Count 359 (150-450) k/uL MPV 6.7 Neutrophils % 69 % Lymphocytes % 20 % Monocytes % 6 % Eosinophils % 2 % Basophils % 0 % Neutrophils # 4.4 (1.3-7.7) k/uL Lymphocytes # 1.3 (1.0-4.8) k/uL Monocytes # 0.4 (0-1.0) k/uL Eosinophils # 0.2 (0-0.7) k/uL Basophils # 0.0 (0-0.2) k/uL Sodium 137 (137-145) mmol/L Potassium 4.2 (3.5-5.1) mmol/L Chloride 107 (98-107) mmol/L Carbon Dioxide 24 (22-30) mmol/L Anion Gap 6 mmol/L BUN 11 (9-20) mg/dL Creatinine 0.65 L (0.66-1.25) mg/dL Est GFR (CKD-EPI)AfAm >90 (>60 ml/min/1.73 sqM) Est GFR (CKD-EPI)NonAf >90 (>60 ml/min/1.73 sqM) Glucose 103 H (74-99) mg/dL Calcium 9.3 (8.4-10.2) mg/dL Total Bilirubin 0.7 (0.2-1.3) mg/dL AST 26 (17-59) U/L ALT 20 (4-49) U/L Alkaline Phosphatase 76 (38-126) U/L Total Protein 7.3 (6.3-8.2) g/dL Albumin 4.1 (3.5-5.0) g/dL Salicylates <1.0 mg/dL Acetaminophen <10.0 ug/mL Phenytoin <3.0 ug/mL Valproic Acid <10.0 ug/mL Carbamazepine <3.0 ug/mL Serum Alcohol <10 mg/dL Critical Care Time Critical Care Time: Yes Total Critical Care Time: 31 <Ken Linder - Last Filed: 03/09/20 20:49> Disposition <Raji Nobles - Last Filed: 03/09/20 20:01> Is patient prescribed a controlled substance at d/c from ED?: No <Ken Linder - Last Filed: 03/09/20 20:49> Clinical Impression: Breakthrough seizure, Status epilepticus Disposition: ADMITTED IP TO THIS HOSP Condition: Good Referrals: None,Stated [Primary Care Provider] - 1-2 days
[2020-03-09 18:13] LABS: Basophils % (A) 0 %; Eosinophils # (A) 0.2 k/uL (0-0.7); Eosinophils % (A) 2 %; HGB 15.1 gm/dL (13.0-17.5); Lymphocytes # (A) 1.3 k/uL (1.0-4.8); Lymphocytes % (A) 20 %; MCH 30.1 pg (25.0-35.0); MCHC 33.7 g/dL (31.0-37.0); MCV 89.3 fL (80.0-100.0); Mean Platelet Volume 6.7; Monocytes # (A) 0.4 k/uL (0-1.0); Monocytes % (A) 6 %; Neutrophils # (A) 4.4 k/uL (1.3-7.7); Neutrophils % (A) 69 %; Platelet Count 359 k/uL (150-450); RBC 5.03 m/uL (4.30-5.90); RDW 13.3 % (11.5-15.5); WBC 6.5 k/uL (3.8-10.6)
[2020-03-09 18:30] LABS: ALT 20 U/L (4-49); AST 26 U/L (17-59); Acetaminophen <10.0 ug/mL; African American GFR (CKD) >90 (>60 ml/min/1.73 sqM); Albumin 4.1 g/dL (3.5-5.0); Alcohol <10 mg/dL; Alkaline Phosphatase 76 U/L (38-126); Anion Gap 6 mmol/L; Blood Urea Nitrogen 11 mg/dL (9-20); Calcium 9.3 mg/dL (8.4-10.2); Carbamazepine (Tegretol) <3.0 ug/mL; Carbon Dioxide 24 mmol/L (22-30); Chloride 107 mmol/L (98-107); Glucose 103 mg/dL (74-99); Non-African American GFR(CKD) >90 (>60 ml/min/1.73 sqM); Phenytoin (Dilantin) <3.0 ug/mL; Potassium 4.2 mmol/L (3.5-5.1); Salicylate <1.0 mg/dL; Sodium 137 mmol/L (137-145); Total Bilirubin 0.7 mg/dL (0.2-1.3); Total Protein 7.3 g/dL (6.3-8.2)
[2020-03-09 18:32] LABS: Valproic Acid (Depakene) <10.0 ug/mL
--- NOTE | 2020-03-09 19:03 | CT ---
EXAMINATION TYPE: CT brain cspine wo con DATE OF EXAM: 03/09/2020 COMPARISON: None HISTORY: Seizure and fall. Headache. Neck pain CT DLP: 1480.7 mGycm Automated exposure control for dose reduction was used. Ventricles and sulci appear normal. There is no mass effect nor midline shift. There is no sign of in tracranial hemorrhage. Calvarium is intact. There is no evidence of cerebral edema. Skull base is int act. There is normal aeration of the mastoid sinuses. Cervical vertebra have normal spacing and alignment. Posterior elements are intact. Prevertebral soft tissues appear normal. IMPRESSION: Normal cervical spine CT scan. Normal head CT scan.
[2020-03-09] MEDS ORDERED: LIDOCAINE 1% INJ 10MG/ML (20 ML MDV) SQ STA (19:27)
[2020-03-09] MEDS ORDERED: LORazepam 2 MG/ML INJ IV STA (19:28)
[2020-03-09] MEDS: levETIRAcetam IV 1,000 MG in SALINE 1 100ML.BAG IVPB SCH (22:06)
[2020-03-09] MEDS ORDERED: DIVALPROEX 250 MG TABLET.DR PO ONE (22:45)
[2020-03-09] MEDS ORDERED: KETOROLAC 15 MG/ML 1 ML VIAL IM STA (22:49)
[2020-03-09 23:07] LABS: Appearance,Urine Clear (Clear); Bilirubin,Urine Negative (Negative); Blood,Urine Negative (Negative); Color,Urine Light Yellow; Glucose,Urine (UA) Negative (Negative); Ketones,Urine Trace (Negative); Leukocyte Esterase,Urine Negative (Negative); Nitrite,Urine Negative (Negative); Protein,Urine Negative (Negative); Specific Gravity,Urine 1.011 (1.001-1.035); Urobilinogen,Urine <2.0 mg/dL (<2.0)
[2020-03-10 00:05] LABS: Amphetamine Screen,Urine Not Detected (NotDetected); Barbiturate Screen,Urine Not Detected (NotDetected); Benzodiazepines Screen,Urine Detected (NotDetected); Cocaine Screen,Urine Not Detected (NotDetected); Methadone Screen, Urine Not Detected (NotDetected); Opiate Screen,Urine Not Detected (NotDetected); Oxycodone Screen, Urine Not Detected (NotDetected); Phencyclidine Screen,Urine Not Detected (NotDetected); Tricyclic Antidepressant,Urine Not Detected (NotDetected); Urn Cannabinoid Scrn Detected (NotDetected)
--- NOTE | 2020-03-10 01:17 | P.HPIM ---
History of Present Illness H&P Date: 03/09/20 The patient is a 29-year-old male with a PMH of seizure disorder, brought in under police custody for seizure and head trauma. The patient was reportedly incarcerated 2 days ago and had an episode of seizure earlier today which was witnessed by the staff at the nursing home who had reported that the patient had a seizure for 30 minutes. The patient was seen in the emergency room and was given a dose of Depakote along with a prescription which was given to the nursing home staff and the patient was discharged. The patient reportedly then had another seizure episode (described as grand mal) in nursing home in which he fell and struck his head on the ground. The patient then also had another episode of seizure in the emergency room at around 6:30 PM as per the staff. The patient was noted to be unresponsive and with his arms flexed and shaking lasting for 1-2 minutes. The patient had apparently not been taking his Depakote over the past few days. The patient did not recall the episodes at time of interview. He reported a moderate diffuse headache and 7 out of 10 left sided back pain though denied any additional complaints. He denied tongue biting, bladder or bowel incontinence. Also denied weakness, numbness, tingling. Denied visual disturbances. Denied chest pain, shortness of breath, nausea, vomiting, abdominal pain. He underwent an extensive evaluation in the emergency room which was all reviewed with a head/cervical spine CT which was unremarkable. EKG showing sinus bradycardia at 58 bpm with no acute ST/T-wave changes noted as reviewed by me. Laboratory evaluation revealed an undetectable valproic acid level, urine toxicology positive for marijuana, creatinine 0.65, and glucose 103. The patient was given 1 g of Keppra IV, received 3 sutures to the forehead, and was admitted to the medical service for further management. Review of Systems Pertinent positives and negatives as discussed in HPI, a complete review of systems was performed and all other systems are negative. 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 He has 1 brother that has bipolar. 3 brothers that are healthy. He has one sister that is healthy. He does not have any children. Medications and Allergies Home Medications Medication Instructions Recorded Confirmed Type Divalproex Sodium [Depakote] 500 mg PO BID #60 tablet. 03/09/20 03/09/20 Rx Allergies Allergy/AdvReac Type Severity Reaction Status Date / Time phenobarbital AdvReac Nausea & Verified 03/09/20 18:13 Vomiting & Diarrhea Physical Exam Vitals: Vital Signs Temp Pulse Resp BP Pulse Ox 03/09/20 20:58 96.9 F L 60 20 127/80 99 03/09/20 17:26 98.5 F 64 18 120/68 98 Intake and Output 03/09/20 03/09/20 03/09/20 06:59 14:59 22:59 Other: Weight 61.235 kg General: non toxic, no distress, appears at stated age, normal weight Derm: no unusual rashes/lesions no unusual ecchymoses, warm, dry Head: Left forehead large laceration with dried blood, anterior forehead 5-6 cm laceration with 3 sutures, symmetric Eyes: EOMI, no lid lag, anicteric sclera, pupils equal round reactive to light ENT: Nose and ears atraumatic, no thrush, no pharyngeal erythema Neck: No thyromegaly, no cervical lymphadenopathy, trachea midline, supple Mouth: no lip lesion, mucus membranes moist, no tongue bites noted Cardiovascular: S1S2 reg, no murmur, positive posterior tibial pulse bilateral, no edema, capillary refill less than 2 seconds Lungs: CTA bilateral, no rhonchi, no rales , no accessory muscle use Abdominal: soft, nontender to palpation, no guarding, no appreciable organomegaly, normal bowel sounds Ext: no gross muscle atrophy, muscle strength 5 out of 5 in all 4 extremities grossly, no contractures, mild left sided mid back tenderness, no spinal tenderness noted Neuro: CN II-XI grossly intact, light touch intact all 4 extremities, finger to nose within normal limits, Psych: Alert, oriented, appropriate affect Results CBC & Chem 7: 03/09/20 17:55 03/09/20 17:55 Labs: Abnormal Lab Results - Last 24 Hours (Table) 03/09/20 Range/Units 17:55 Creatinine 0.65 L (0.66-1.25) mg/dL Glucose 103 H (74-99) mg/dL Assessment and Plan Plan: Breakthrough seizure in setting of noncompliance with Depakote -Status post Keppra loading dose -Will also administer a loading dose of Depakote since concerning for breakthrough seizure after administration of Keppra -Neuro checks -Fall, aspiration, seizure precautions -Neurology consult Back pain -Likely sprain due to fall and seizure -Pain control DVT prophylaxis -Heparin subq The patient is admitted with an anticipated less than 2 midnight stay for evaluation of seizure CODE STATUS: Full Code Discussed with: Patient Anticipated discharge date: in am Anticipated discharge place: nursing home A total of 35 minutes was spent on the care of this complex patient more than 50% of the time was spent in counseling and care coordination.
[2020-03-10] MEDS ORDERED: HEPARIN SODIUM,PORCINE 5,000 UNIT/ML 1 ML VIAL SQ SCH (08:00)
--- NOTE | 2020-03-10 08:50 | P.PN ---
Subjective Principal diagnosis: Seizure per guard that the patient Seizure earlier this morning prior to 7 AM. Currently but not in distress, no chest pain, abdominal pain, no nausea or vomiting. Objective - Vital Signs Vital signs: Vital Signs Temp 97.8 F 03/10/20 04:10 Pulse 90 03/10/20 04:10 Resp 16 03/10/20 04:10 BP 103/64 03/10/20 04:10 Pulse Ox 97 03/10/20 04:10 Intake & Output 03/09/20 03/10/20 03/10/20 18:59 06:59 18:59 Weight 61.235 kg 61.235 kg Other: Voiding Method Toilet Urinal # Voids 2 # Bowel Movements 0 - Exam General: non toxic, no distress Derm: no unusual rashes Head: Left forehead large laceration Eyes: EOMI, no lid lag, anicteric sclera, pupils equal round reactive to light ENT: Nose and ears atraumatic, no thrush, no pharyngeal erythema Neck: No thyromegaly, no cervical lymphadenopathy Mouth: no lip lesion Cardiovascular: S1S2 reg, no murmur Lungs: CTA bilateral, no rhonchi, no rales , no accessory muscle use Abdominal: soft, nontender to palpation, no guarding, no appreciable organomegaly, normal bowel sounds Ext: no gross muscle atrophy Neuro: CN II-XI grossly intact, light touch intact all 4 extremities Psych: Alert, oriented, appropriate affect - Labs CBC & Chem 7: 03/09/20 17:55 03/09/20 17:55 Labs: Abnormal Lab Results - Last 24 Hours (Table) 03/09/20 03/09/20 Range/Units 17:55 23:00 Creatinine 0.65 L (0.66-1.25) mg/dL Glucose 103 H (74-99) mg/dL Urine Ketones Trace H (Negative) U Benzodiazepines Scrn Detected H (NotDetected) U Marijuana (THC) Screen Detected H (NotDetected) Assessment and Plan Plan: Breakthrough seizure in setting of noncompliance with Depakote -Status post Keppra loading dose and Depakote -Neuro checks -Fall, aspiration, seizure precautions -Neurology consult _ on keppra Back pain -Likely sprain due to fall and seizure -Pain control DVT prophylaxis -Heparin subq Discussed with: Patient Anticipated discharge date: in 1-[address]: prison
[2020-03-10] MEDS ORDERED: levETIRAcetam IV 1,500 MG in SALINE 1 100ML.BAG IVPB STA (09:04)
[2020-03-10] MEDS ORDERED: LORazepam 2 MG/ML INJ IV STA ×3 (09:05→13:42)
[2020-03-10] MEDS: levETIRAcetam IV 1,000 MG in SALINE 1 100ML.BAG IVPB SCH (09:14)
--- NOTE | 2020-03-10 09:25 | P.CNNES ---
History of Present Illness Consult date: 03/10/20 Requesting physician: Ken Linder Reason for Consult: seizure History of Present Illness: This is a 29-year-old gentleman with history of pulmonary generalized epilepsy, medication noncompliance, chronic marijuana use, presented emergency department on 03/09/2020 for a seizure-like activity earlier the day of presentation. The patient was reportedly incarcerated 2 days ago and had an episode of seat seizure earlier the day of presentation which was witnessed by the staff at the [facility] reported the patient had a seizure for 30 minutes. The patient reportedly then had another episode of seizure reported as grand mal in the [facility] in which he fell and struck his head on the ground. The patient had another episode seizure in the emergency around 6:30 PM per the staff. It is documented to the patient was noted to be unresponsive and with his arm flexed and shaking lasting 1-2 minutes. It is reported that patient has not been taking Depakote over the past few days. As a result of the seizures the patient had trauma to the head and some bleeding over the forehead which she received 3 sutures. Patient notified me that he has missed his last 3-4 days of Depakote and could not tell why. He was not exactly sure of Depakote dose he is on but stated his mother hand over the medication to him. He there are times when he takes the Depakote and still has seizure but could not tell me how frequent. He notified me that he has not followed-up with neurologist since was discharge on previous visit (10/16/19) because he could not find a neurologist. He denies of alcohol use. Workup in the hospital consisted of: CT of the head was reported as normal. CT of the cervical spine also was reported as normal. EKG was reported as sinus bradycardia. Ventricular rate of 58. Rightward axis. Ventricle rate of 58. Urinalysis was negative for urinary tract infection. Urine drug screen was positive for benzos and now for the THC. The serum alcohol level was less than 10. Salsalate was less than 1.0, acetaminophen was less than 10.0, phenytoin was less than 3.0, valproic acid level was less than 10 and carbamazepine is less than 3.0. In the ED the patient received Valium 5 mg once, Ativan 2mg once in ED as well as she received 1000 mg of Keppra in the ED then was started on Keppra 1000 mg every 12 hours by the ED physician. The primary team gave him 1 time dose of Depakote 750 mg once. And was started on Ativan 1 mg every 4 hours when necessary for seizures. Patient was seen by my colleague Dr. Sheikh on 10/16/2019 as well as 10/22/2019 which he documented patient has recurrence of his seizures in which she ended up at [facility] the [facility] and underwent continuous EEG monitoring, which revealed generalized spike and wave discharges as well as high amplitude alpha, beta frequencies that represent a concern for further generalized seizure event. Patient was placed on Depakote and discharged back to group home. t Is Documented in His Note That the Patient Feels like He Is Not Getting Depakote in the [facility] and That's What Leading to the Breakthrough Seizures. A routine EEG was done in our facility and 10/16/2019 and was a reported as an abnormal EEG due to focal slowing in the right temporal region. This is suggestive of focal cortical neuronal dysfunction. No definite of epileptiform activity was seen. And per patient's the patient was discharged from [facility] on Depakote extended release thousand milligrams every hours which was noted by my colleague that it appears very high and therefore he'll discharge the patient on Depakote extended release 500 mg 2 capsules twice a day. Also he recommended the patient to follow-up with his neurologist in 2-3 weeks. Review of Systems Review of system: The 12 point system was reviewed and apparent positive and negative per HPI. 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 He has 1 brother that has bipolar. 3 brothers that are healthy. He has one sister that is healthy. He does not have any children. Medications and Allergies Home Medications Medication Instructions Recorded Confirmed Type Divalproex Sodium [Depakote] 500 mg PO BID #60 tablet. 03/09/20 03/09/20 Rx Allergies Allergy/AdvReac Type Severity Reaction Status Date / Time phenobarbital AdvReac Nausea & Verified 03/09/20 18:13 Vomiting & Diarrhea Physical Examination - Vital Signs Vital Signs: Vital Signs Temp Pulse Pulse Resp BP BP Pulse Ox 03/10/20 04:10 97.8 F 90 16 103/64 97 03/09/20 22:05 98.5 F 56 L 16 130/74 99 03/09/20 22:00 20 03/09/20 20:58 96.9 F L 60 20 127/80 99 03/09/20 17:26 98.5 F 64 18 120/68 98 Intake and Output 03/09/20 03/10/20 03/10/20 22:59 06:59 14:59 Other: Voiding Method Toilet Urinal # Voids 2 # Bowel Movements 0 Weight 61.235 kg GENERAL: The patient is lying in bed and is not in acute distress. HENT: Left forehead laceration s/p suture. CHEST: The heart rate is regular rate rhythm. No murmurs to auscultation. LUNG: Clear to auscultation bilaterally no wheezing noted throughout. Not labored breathing. ABDOMEN/GI: Bowel sounds present in all 4 quadrants. No tenderness to palpation throughout. NEUROLOGICAL: Higher mental function: The patient is awake, alert, oriented to self, place and time. Patient is following commands. No aphasia and no neglect. Cranial nerves: The pupils are round 3-4mm, equal and reactive to light and accommodation. Visual perez are full to confrontation throughout. Extraocular movement is intact no nystagmus is noted. Facial sensation is normal to touch throughout. The facial strength is normal throughout. Hearing is normal bilaterally to hand rub. Tongue is midline and moved [id number] without any difficulty. No dysarthria is noted. Shoulder shrug is normal bilaterally. Motor: The strength is 5 over 5 throughout. Normal tone and bulk. Cerebellum: Normal finger to nose heel to chin bilaterally. Sensation: Sensation is normal to touch throughout. Reflexes (right/left): 2+ throughout. Plantars are downgoing bilaterally. Results ACTH 26, ALT of 20. Calcium of 9.3. Serum glucose of 103. - Laboratory Findings CBC and BMP: 03/09/20 17:55 03/09/20 17:55 Abnormal Lab Findings: Abnormal Labs 03/09/20 03/09/20 17:55 23:00 Creatinine 0.65 L Glucose 103 H Urine Ketones Trace H U Benzodiazepines Scrn Detected H U Marijuana (THC) Screen Detected H Assessment and Plan Assessment: Status Epilepticus Primary generalized epilepsy with relapses due to medication non-compliance Medication noncompliance Chronic marijuana use History of alcohol abuse Plan: Patient is noncompliant with the Depakote and his level is non-detected on presentation. I will restart his Depakote 1000 mg extended release 1 tablet twice a day. The patient was started on Keppra at thousand milligrams every 12 hours by the primary team and will continue it. The patient was given a loading dose of Depakote 750 mg yesterday by primary team.. I will repeat valproic acid level the free and total. The patient was counseled on not taking his medication on a daily basis. The patient was advised to avoid driving for 6 month until seizure-free per [place] [employer], avoid the [place], heavy machinery, unassisted swimming. Patient needs to follow-up with a neurologist within 1-2 weeks upon discharge. As I was about to leave the patient room (around 9:05am), patient was seizuring. Lasting 30 seconds to 1 minute with unresponsiveness, eye deviation up and flexion posture of bilaterally upper extremities, some foaming around the mouth. Then he was in post-ictal for 30 seconds to 1 minute then had 2 more episodes. I gave patient 2mg Ativan STAT. But had another episode lasting 30seconds to 1 minutes. Therefore I asked them to give him another 2mg ativan STAT. Then I will Keppra Keppra 1500mg loading dose STAT. Then patient received another 1mg of Ativan. I asked for the patient to be transferred to ICU but was told there are no beds available. I spoke with ICU Attending regarding the patient. Patient continued to have seizures so I notified nurse to give Ativan 1mg (which in total he should have received 8mg since the AM. Then I ordered STAT Dilantin 20mg/kg loading dose. Then if he continues to seize notified nurse to intubated the patient and Place on loading dose Versed 0.2mg/kg then maintenance of 0.1mg/kg. Notified primary team that patient needs to be transferred for alf EEG. He was approved to go to [facility]. I attempted to contact the patient mother via phone (number from hospital facesheet but non response). Thank you for the consultation. Gerald Lam M.D. Neuro-hospitalist Time with Patient: Greater than 30
[2020-03-10] MEDS: DIVALPROEX ER 500 MG TAB.ER.24H PO SCH ×2 (09:30→10:04)
[2020-03-10] MEDS: LORazepam 2 MG/ML INJ IV PRN ×3 (09:39→13:25)
[2020-03-10 11:53] LABS: Glucose,Whole Blood 103 mg/dL (75-99)
[2020-03-10 12:55] VITALS: TEMP 98.3
--- NOTE | 2020-03-10 13:06 | P.DS ---
Providers Date of admission: 03/09/20 20:37 Attending physician: Jenni Rodriguez MD Consults: 03/09/20 20:37 Consult Physician Routine Consulting Provider: Gerald Lam Consult Reason/Comments: sz Do you want consulting provider notified?: Yes 03/10/20 12:19 Consult Physician Routine Consulting Provider: Es Carrion Consult Reason/Comments: icu management Do you want consulting provider notified?: Already Contacted Primary care physician: Stated None Hospital Course: Diagnosis Status Epilepticus Primary generalized epilepsy with relapses due to medication non-compliance Medication noncompliance Chronic marijuana use History of alcohol abuse without withdrawal HPI: The patient is a 29-year-old male with a PMH of seizure disorder, brought in under police custody for seizure and head trauma. The patient was reportedly incarcerated 2 days ago and had an episode of seizure earlier today which was witnessed by the staff at the longterm who had reported that the patient had a seizure for 30 minutes. The patient was seen in the emergency room and was given a dose of Depakote along with a prescription which was given to the longterm staff and the patient was discharged. The patient reportedly then had another seizure episode (described as grand mal) in longterm in which he fell and struck his head on the ground. The patient then also had another episode of seizure in the emergency room at around 6:30 PM as per the staff. The patient was noted to be unresponsive and with his arms flexed and shaking lasting for 1-2 minutes. The patient had apparently not been taking his Depakote over the past few days. The patient did not recall the episodes at time of interview. He reported a moderate diffuse headache and 7 out of 10 left sided back pain though denied any additional complaints. He denied tongue biting, bladder or bowel incontinence. Also denied weakness, numbness, tingling. Denied visual disturbances. Denied chest pain, shortness of breath, nausea, vomiting, abdominal pain. He underwent an extensive evaluation in the emergency room which was all reviewed with a head/cervical spine CT which was unremarkable. EKG showing sinus bradycardia at 58 bpm with no acute ST/T-wave changes noted as reviewed by me. Laboratory evaluation revealed an undetectable valproic acid level, urine toxicology positive for marijuana, creatinine 0.65, and glucose 103. The patient was given 1 g of Keppra IV, received 3 sutures to the forehead, and was admitted to the medical service for further management Hospital course and treatment Patient was admitted from the longterm seizures. He is history of seizures and noncompliance to medications. He has been on Depakote as an outpatient but has not taken his medications. He developed seizures and was transferred to our facility. He was evaluated by neurology for status epilepticus. Patient was started on Keppra, Depakote as well as when necessary IV Ativan. Continued to have episodes of seizures. He was transferred to the ICU. Neurology recommended transfer to a higher level of care for continuous EEG. I have discussed the treatment plan with [facility] neuro wildlife officer, plan for transfer today. Patient Condition at Discharge: Fair Plan - Discharge Summary Discharge Rx Participant: No New Discharge Prescriptions: Continue Divalproex Sodium [Depakote] 500 mg PO BID #60 tablet. Discharge Medication List Divalproex Sodium [Depakote] 500 mg PO BID #60 tablet. 03/09/20 [Rx] Follow up Appointment(s)/Referral(s): None,Stated [Primary Care Provider] - 1-2 days Discharge Disposition: OTHER INSTITUTION NOT DEFINED
[2020-03-10] MEDS ORDERED: PHENYTOIN SODIUM IVPB STA (13:45)
[2020-03-10] MEDS ORDERED: SODIUM CHLORIDE 0.9% IVPB STA (13:45)
[2020-03-10] MEDS ORDERED: propofoL 100 ML IV ONE (13:52)
[2020-03-10] MEDS ORDERED: MIDAZOLAM 1 MG/ML 5 ML VIAL IV STA (14:03)
--- NOTE | 2020-03-10 14:04 | P.CNPUL ---
History of Present Illness Consult date: 03/10/20 Requesting physician: Gerald Lam Reason for consult: other (Status epilepticus, requiring transfer to ICU) Chief complaint: Seizures History of present illness: This is a 29-year-old white male with history of seizures, medical noncompliance, patient was incarcerated 2 days ago and while in [facility], the patient had a seizure that lasted about 30 minutes. Patient was brought into the ER on 03/09 for seizure-like activity which was witnessed by [facility] guards. Patient was brought into the ER, 2 days ago, and given a dose of Depakote and discharged back to [facility]. Another seizure happened also while in [facility] again, and supposedly the patient has not been taking his Depakote over the last few days. At any rate the patient was admitted and while on the floor he continued to have intermittent episodes of seizures, multiple medications were given to the patient, seen by neurology today, and I will arrange for him to be transferred to the ICU. In the meantime patient is being considered for transfer to a tertiary care center where he could have 24-hour seizure monitor./EEG. During my evaluation in the ICU, patient seems to be seizure-free, appropriate, and in no form of distress. Apparently since admission, patient received multiple seizure medications. Review of Systems Constitutional: Negative HEENT: Negative Cardiac: Negative Pulmonary: Negative GI: Negative Genitourinary: Negative Musculoskeletal: Negative Skin: Negative Neurologic: As noted in HPI. 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 He has 1 brother that has bipolar. 3 brothers that are healthy. He has one sister that is healthy. He does not have any children. Medications and Allergies Home Medications Medication Instructions Recorded Confirmed Type Divalproex Sodium [Depakote] 500 mg PO BID #60 tablet. 03/09/20 03/09/20 Rx Allergies Allergy/AdvReac Type Severity Reaction Status Date / Time phenobarbital AdvReac Nausea & Verified 03/09/20 18:13 Vomiting & Diarrhea Physical Exam Vitals: Vital Signs Temp Pulse Pulse Resp BP BP BP 03/10/20 13:30 87 19 111/63 03/10/20 13:20 78 30 H 111/63 03/10/20 13:10 82 17 111/63 03/10/20 13:00 64 15 118/71 03/10/20 12:50 98.3 F 66 12 118/71 03/10/20 10:02 57 L 99/65 03/10/20 09:17 72 116/61 03/10/20 09:12 67 108/54 03/10/20 04:10 97.8 F 90 16 103/64 03/09/20 22:05 98.5 F 56 L 16 130/74 03/09/20 22:00 20 03/09/20 20:58 96.9 F L 60 20 127/80 03/09/20 17:26 98.5 F 64 18 120/68 Pulse Ox 03/10/20 13:30 96 03/10/20 13:20 94 L 03/10/20 13:10 97 03/10/20 13:00 96 03/10/20 12:50 98 03/10/20 10:02 03/10/20 09:17 98 03/10/20 09:12 96 03/10/20 04:10 97 03/09/20 22:05 99 03/09/20 22:00 03/09/20 20:58 99 03/09/20 17:26 98 Intake and Output 03/09/20 03/10/20 03/10/20 22:59 06:59 14:59 Intake Total 225 Output Total 650 Balance -425 Intake: IV 100 Sodium Chloride 0.9% 1, 100 000 ml @ 100 mls/hr IV . Q10H STA Rx#:[id number] Oral 125 Output: Urine 650 Other: Voiding Method Toilet Toilet Urinal Urinal # Voids 2 # Bowel Movements 0 Weight 61.235 kg General: Revealed a 29-year-old white male in no distress. Head: Superficial laceration noted on the forehead. With sutures. Eyes: PERRLA, EOMI, no icterus. ENT: Dry mucous membranes, no neck masses, no JVD, no stridor. Neck: No evidence of neck rigidity. Normal range of motion. Cardiovascular: Normal S1 and S2, no S3 gallop Lungs: Symmetrical chest expansion, clear throughout, no crackles or rhonchi or wheezes. Abdominal: Soft nontender no megaly no rebound. Ext: No clubbing edema or cyanosis. Neuro: Alert and oriented 3, no gross focal deficits. Psych: Normal mood, blunt affect, normal mental status examination. Results - Laboratory Findings CBC and BMP: 03/09/20 17:55 03/09/20 17:55 Abnormal lab findings: Abnormal Labs 03/09/20 03/09/20 03/10/20 17:55 23:00 11:51 Creatinine 0.65 L Glucose 103 H POC Glucose (mg/dL) 103 H Urine Ketones Trace H U Benzodiazepines Scrn Detected H U Marijuana (THC) Screen Detected H - Diagnostic Findings Additional studies: Head CT and cervical CT, report was noted to be normal. Assessment and Plan Assessment: Impression: Status epilepticus History of seizure disorder. History of noncompliance with medications. History of chronic marijuana use History of alcohol abuse. Recommendation: Patient was restarted on Depakote. Patient was seen by neurology and started on Keppra at 3000 mg every 12 hours he was also given a loading dose yesterday. Valproic acid levels are being checked by neurology. Continue Ativan as needed Agree with transferring the patient to a tertiary care center once a bed becomes available. In case the patient develops seizures that could not be controlled, would suggest intubating the patient and ventilatory support with propofol drip. We'll continue to follow Time with Patient: Greater than 30
[2020-03-10] MEDS ORDERED: MIDAZOLAM HCL 50 MG in SODIUM CHLORIDE 0.9% 40 ML IV SCH ×2 (14:15→14:45)
[2020-03-10] MEDS ORDERED: MIDAZOLAM 2 MG/2 ML VIAL ONE (14:16)
[2020-03-10] MEDS ORDERED: MIDAZOLAM 2 MG/2 ML VIAL IV ONE (14:45)
[2020-03-10] MEDS ORDERED: HYDROmorphone 1 MG/ML 1 ML SYRINGE IVP PRN (14:47)
[2020-03-10 15:38] VITALS: BP 115/66; PULSE 60; RESP 20
[2020-03-10] MEDS ORDERED: CHLORHEXIDINE GLUCONATE 15 ML CUP MUCOUS MEM SCH (21:00)
== END 2020-03-10 16:16 | disposition other institution (70) ==
LOC: EC 17:23 → 5NMEDONC 20:37 → 2SICU 03-10 11:51
PROVIDERS: ADMIT Internal Medicine; ATTEND Internal Medicine
DX: G40.401 Other generalized epilepsy and epileptic syndromes, not intractable, with status epilepticus (principal); T42.6X6A Underdosing of other antiepileptic and sedative-hypnotic drugs, initial encounter; Z91.14 Patient's other noncompliance with medication regimen; S01.81XA Laceration without foreign body of other part of head, initial encounter; B19.20 Unspecified viral hepatitis C without hepatic coma; F90.9 Attention-deficit hyperactivity disorder, unspecified type; R19.7 Diarrhea, unspecified; R00.1 Bradycardia, unspecified; M54.9 Dorsalgia, unspecified; F10.11 Alcohol abuse, in remission; F17.200 Nicotine dependence, unspecified, uncomplicated; Z79.899 Other long term (current) drug therapy; Z88.8 Allergy status to other drugs, medicaments and biological substances; W19.XXXA Unspecified fall, initial encounter; Y92.149 Unspecified place in prison as the place of occurrence of the external cause; Z81.8 Family history of other mental and behavioral disorders
CPT/HCPCS: 96376 ×2; 96361 ×3; 96372 ×2; 96375 ×3; 12011; 96365; 99291; 36415; 94002; 93005; 80156; 80164 ×2; 80165; 80053; 80185; 85025; 81003; 80306; 83520; 72125; 70450; G0378 ×3; G0480 ×2; J2250 ×2; J2060; J1165; J1644; J3360; J2001; J1885; J1953 ×2; 80320; 80329

== ENCOUNTER 2020-03-12 14:15 | Emergency (ER) | payer OTHER ==
[2020-03-12 14:42] VITALS: RESP 18
[2020-03-12 15:49] LABS: Basophils % (A) 0 %; Eosinophils # (A) 0.2 k/uL (0-0.7); Eosinophils % (A) 3 %; HCT 47.4 % (39.0-53.0); HGB 15.9 gm/dL (13.0-17.5); Lymphocytes # (A) 1.5 k/uL (1.0-4.8); Lymphocytes % (A) 23 %; MCH 30.1 pg (25.0-35.0); MCHC 33.4 g/dL (31.0-37.0); MCV 90.2 fL (80.0-100.0); Mean Platelet Volume 6.8; Monocytes # (A) 0.4 k/uL (0-1.0); Monocytes % (A) 6 %; Neutrophils # (A) 4.3 k/uL (1.3-7.7); Neutrophils % (A) 67 %; Platelet Count 365 k/uL (150-450); RBC 5.26 m/uL (4.30-5.90); RDW 13.1 % (11.5-15.5); WBC 6.5 k/uL (3.8-10.6)
--- NOTE | 2020-03-12 15:56 | ED ---
Seizure HPI - General Chief Complaint: Seizure Stated Complaint: Seizures Time Seen by Provider: 03/12/20 15:04 Source: patient, EMS Mode of arrival: EMS Limitations: no limitations - History of Present Illness Initial Comments: 29-year-old male with seizure disorder presenting to the emergency department with a chief complaint of a seizure. Patient was brought to the ED by care home staff. Patient was at the [facility] for 2 days for seizure evaluation where he was diagnosed with stress-induced seizures. The patient apparently was picked up from the [facility], and on the drive home the patient had another seizure episode. The military police officer states that the patient was refrain when the seizure occurred and she fell off of the van seat and was "snoring". The officer does not recall any tonic-clonic movements. Patient denies urinary or bowel incontinence. He also denies biting on the side of his tongue. Denies any complaints at this time. - Related Data Previous Rx's Medication Instructions Recorded Divalproex Sodium [Depakote] 500 mg PO BID #60 tablet. 03/09/20 Allergies Allergy/AdvReac Type Severity Reaction Status Date / Time phenobarbital AdvReac Nausea & Verified 03/09/20 18:13 Vomiting & Diarrhea Review of Systems ROS Statement: Those systems with pertinent positive or pertinent negative responses have been documented in the HPI. ROS Other: All systems not noted in ROS Statement are negative. 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 He has 1 brother that has bipolar. 3 brothers that are healthy. He has one sister that is healthy. He does not have any children. General Exam Limitations: no limitations General appearance: alert, in no apparent distress Head exam: Present: atraumatic, normocephalic, normal inspection Eye exam: Present: normal appearance, PERRL, EOMI Pupils: Present: normal accommodation ENT exam: Present: normal exam, normal oropharynx, mucous membranes dry, TM's normal bilaterally, normal external ear exam Neck exam: Present: normal inspection, full ROM. Absent: tenderness, meningismus, lymphadenopathy Respiratory exam: Present: normal lung sounds bilaterally. Absent: respiratory distress, wheezes, rales Cardiovascular Exam: Present: regular rate, normal rhythm, normal heart sounds. Absent: systolic murmur, diastolic murmur Extremities exam: Present: normal inspection, full ROM, normal capillary refill. Absent: tenderness, pedal edema, joint swelling Back exam: Present: normal inspection, full ROM. Absent: tenderness, CVA tenderness (R), CVA tenderness (L) Neurological exam: Present: alert, oriented X3 Psychiatric exam: Present: normal affect, normal mood. Absent: depressed, agitated Skin exam: Present: warm, dry, intact, normal color Course Vital Signs 03/12/20 03/12/20 14:36 18:03 Temperature 97.5 F L 98.4 F Pulse Rate 61 66 Respiratory 18 18 Rate Blood Pressure 115/61 117/73 O2 Sat by Pulse 99 100 Oximetry - Reevaluation(s) Reevaluation #1: 03/12/20 20:07 Medical records reviewed Medical Decision Making - Medical Decision Making 29-year-old male with history of seizure disorder presenting to the emergency department with a chief complaint of a seizure. Physical examination, patient does not have any trauma to the side of the tongue. He was not incontinent. He did not appear to be in a postictal state either. CBC CMP unremarkable. Lactic acid within normal limits. Depakote levels within acceptable limits. I received the patient's chart from the [facility] where he received extensive neurological evaluation. Patient was diagnosed with nonepileptic psychogenic seizures. He was also advised to continue taking his Keppra. At this time, no further workup will be performed in the emergency department. Patient is stable and clear for discharge. Strict return parameters were thoroughly discussed with patient and the military police officer who was understanding and agreeable. Case discussed with physician. - Lab Data Result diagrams: 03/12/20 15:24 03/12/20 15:24 Lab Results 03/12/20 03/12/20 03/12/20 Range/Units 15:24 15:24 15:51 WBC 6.5 (3.8-10.6) k/uL RBC 5.26 (4.30-5.90) m/uL Hgb 15.9 (13.0-17.5) gm/dL Hct 47.4 (39.0-53.0) % MCV 90.2 (80.0-100.0) fL MCH 30.1 (25.0-35.0) pg MCHC 33.4 (31.0-37.0) g/dL RDW 13.1 (11.5-15.5) % Plt Count 365 (150-450) k/uL MPV 6.8 Neutrophils % 67 % Lymphocytes % 23 % Monocytes % 6 % Eosinophils % 3 % Basophils % 0 % Neutrophils # 4.3 (1.3-7.7) k/uL Lymphocytes # 1.5 (1.0-4.8) k/uL Monocytes # 0.4 (0-1.0) k/uL Eosinophils # 0.2 (0-0.7) k/uL Basophils # 0.0 (0-0.2) k/uL Sodium 140 (137-145) mmol/L Potassium 4.5 (3.5-5.1) mmol/L Chloride 108 H (98-107) mmol/L Carbon Dioxide 27 (22-30) mmol/L Anion Gap 5 mmol/L BUN 7 L (9-20) mg/dL Creatinine 0.75 (0.66-1.25) mg/dL Est GFR (CKD-EPI)AfAm >90 (>60 ml/min/1.73 sqM) Est GFR (CKD-EPI)NonAf >90 (>60 ml/min/1.73 sqM) Glucose 80 (74-99) mg/dL Plasma Lactic Acid Giovanni 0.7 (0.7-2.0) mmol/L Calcium 9.5 (8.4-10.2) mg/dL Magnesium 2.2 (1.6-2.3) mg/dL Total Bilirubin 0.6 (0.2-1.3) mg/dL AST 19 (17-59) U/L ALT 15 (4-49) U/L Alkaline Phosphatase 82 (38-126) U/L Total Protein 7.5 (6.3-8.2) g/dL Albumin 4.1 (3.5-5.0) g/dL Valproic Acid 68.6 ug/mL - EKG Data EKG Comments: Sinus rhythm Ventricular rate 62, LA 122, QRS 90, QTC 389. Disposition Clinical Impression: Seizure Disposition: HOME SELF-CARE Condition: Stable Instructions (If sedation given, give patient instructions): Recurrent Seizures in Adults (ED) Additional Instructions: Continue taking Keppra. Return to emergency department if symptoms worsen. Is patient prescribed a controlled substance at d/c from ED?: No Referrals: None,Stated [Primary Care Provider] - 1-2 days Time of Disposition: 17:53
[2020-03-12 16:05] LABS: ALT 15 U/L (4-49); AST 19 U/L (17-59); African American GFR (CKD) >90 (>60 ml/min/1.73 sqM); Albumin 4.1 g/dL (3.5-5.0); Alkaline Phosphatase 82 U/L (38-126); Anion Gap 5 mmol/L; Blood Urea Nitrogen 7 mg/dL (9-20); Calcium 9.5 mg/dL (8.4-10.2); Carbon Dioxide 27 mmol/L (22-30); Chloride 108 mmol/L (98-107); Glucose 80 mg/dL (74-99); Magnesium 2.2 mg/dL (1.6-2.3); Non-African American GFR(CKD) >90 (>60 ml/min/1.73 sqM); Potassium 4.5 mmol/L (3.5-5.1); Sodium 140 mmol/L (137-145); Total Bilirubin 0.6 mg/dL (0.2-1.3); Total Protein 7.5 g/dL (6.3-8.2)
[2020-03-12 16:10] LABS: Valproic Acid (Depakene) 68.6 ug/mL
[2020-03-12 18:04] VITALS: BP 117/73; PULSE 66; TEMP 98.4
== END 2020-03-12 18:04 | disposition home or self-care (01) ==
LOC: EC 14:15
DX: G40.909 Epilepsy, unspecified, not intractable, without status epilepticus (principal); F17.200 Nicotine dependence, unspecified, uncomplicated; Z88.8 Allergy status to other drugs, medicaments and biological substances
CPT/HCPCS: 36415; 80053; 80164; 83605; 83735; 85025; 93005; 99284